=== PATIENT | female | born 1995 | race Caucasian/White ===

== ENCOUNTER 2018-09-29 23:19 | Emergency (ER) | payer SELFPAY ==
[~2018-09-29] VITALS: Ht 170.2 cm; Wt 148.8 kg
--- OUTSIDE RECORDS SUMMARY | 2018-09-29 23:28 | XMS REPORT ---
Author Author [facility] Medical Staff Organization [facility] Address [address] [place] [address] Phone [phone] Summary purpose CCDA Sent to NYE Chief Complaint and Reason for Visit No authorized Reason for Visit (Admitting Diagnosis) is available for this visit . Problem list No authorized problems tracked for continuity of care are available for this vis it. Encounters No authorized problems tracked for encounter diagnoses are available for this vi sit. Medications Home Medications Medication Directions Started Status Source Benadryl Allergy 25 mg tablet 1-2 tablet oral As needed has been taking the last 2 days for rash Current Allergies, adverse reactions, alerts Allergen Category Ingredient Status Reaction Severity Onset No known drug allergies No known drug allergies No known drug allergies Active Immunizations No immunizations recorded for this patient visit Relevant diagnostic tests and/or laboratory data RESULTS [facility] [id number]:00 Result Normal Range Units Urine Negative Negative History of procedures Procedure Code Code Type Description Date Performed Performing Physician J1030 CPT-4 DEPO MEDROL 40MG 05-01-2015 OLGA JESUS J1040 CPT-4 METHLPREDNISOLONE ACETATE 05-01-2015 OLGA JESUS 31310 CPT-4 THER/PROPH/DIAG INJ, SC/IM 05-01-2015 OLGA JESUS 78885 CPT-4 URINE TEST 05-01-2015 OLGA JESUS 75538 CPT-4 EMERGENCY DEPT VISIT 05-01-2015 OLGA JESUS Functional status Cognitive Status Finding Observation Time Level of Consciousne Alert Comment: Pt verbalizes no adverse effects r/t steroid injection or antihistamine given. [id number] Oriented to Person Yes [id number] Yes [id number]:50 Oriented to Time Yes [id number]:50 Vital signs Type Value Date Respirations 20 [id number]:45 Pulse 79 [id number]:45 O2 Saturation 95% [id number]:45 Systolic Blood Press 105mm/HG :45 Diastolic Blood Pres 59mm/HG :45 Temperature (Fahr) 98.6Degrees :45 Height 68in :45 Weight 318LB :45 Social history Type Value Smoking Status CURRENT EVERY DAY SMOKER Treatment Plan No treatment plan text is available for this visit. Hospital discharge instructions Diagnosis Good Diet Same as Before Activity Level Same as Before Meds Dispensed by Pr Hydroxizine 25mg take 1-2 tabs by mouth Every 6 hours as needed. Follow up with See Comments Comment: Follow up in clinic if no improvement in 48 hours ([phone]). Other Instructions Use a good moisturizer that is fragrance free like aquafor, eucerin or aveeno.
--- OUTSIDE RECORDS SUMMARY | 2018-09-29 23:29 | XMS REPORT | Referral Summary ---
Author Author [facility] Organization [facility] Address Unknown Phone Unavailable Care Team Providers Care Compliance Associate Name Role Phone Glenn Mccoy PCP Encounter VC Date(s): 05/31/15 - 05/31/15 [facility] [address], [facility] [address] [place], [place] [address] Discharge Diagnosis: Right hip pain Discharge Disposition: 01-Home or Self Care Attending Physician: Glenn Mccoy MD Admitting Physician: Glenn Mccoy MD Vital Signs Most recent to 1 oldest [Reference Range]: Blood Pressure 110/80 mmHg [90-140/60-90 mmHg] (05/31/15 4:09 PM) Problem List No data available for this section Allergies, Adverse Reactions, Alerts No Known Medication Allergies Medications No Known Medications Results No data available for this section Immunizations Vaccine Date Refusal Reason diphtheria/pertussis, acel/tetanus ped 05/27/94 diphtheria/pertussis, acel/tetanus ped 93 diphtheria/pertussis, acel/tetanus ped 93 diphtheria/pertussis, acel/tetanus ped 93 haemophilus b conjugate (HbOC) vaccine 05/27/94 haemophilus b conjugate (HbOC) vaccine 93 haemophilus b conjugate (HbOC) vaccine 93 haemophilus b conjugate (HbOC) vaccine 93 hepatitis B pediatric vaccine 93 hepatitis B pediatric vaccine 93 measles/mumps/rubella virus vaccine 05/27/94 poliovirus vaccine, inactivated 05/27/94 poliovirus vaccine, inactivated 93 poliovirus vaccine, inactivated 93 Procedures No data available for this section Social History Social History Type Response Smoking Status Type: Cigarettes; Current every day smoker Assessment and Plan Extracted from: Title: Office Visit Note Author: Glenn Mccoy MD Date: 05/31/15 Assessment/Plan Right hip pain xray and refer to ortho, she really needs to lose weight and quit smoking, routine f/u Ordered: Internal Referral to Orthopedic Office Visit Level 3 Est 32191 XR Hip w Pelvis when perform 2-3 vws RT Referrals to Other Providers right hip pain, referred to: Nelson Peoples MD Referred by: Glenn Mccoy MD
--- OUTSIDE RECORDS SUMMARY | 2018-09-29 23:29 | XMS REPORT | Referral Summary ---
Author Author [facility] Organization [facility] Address Unknown Phone Unavailable Care Team Providers Care Internist Name Role Phone Glenn Mccoy PCP Encounter VC Date(s): 07/03/17 - 07/05/17 [facility] [address] [place], [place] [address] Encounter Diagnosis Chest pain (Discharge Diagnosis) - 07/04/17 Discharge Disposition: 01-Home or Self Care Attending Physician: Ingrid Alvarado DO Admitting Physician: Ingrid Alvarado DO Vital Signs Most recent to 1 oldest [Reference Range]: Temperature Oral 36.7 degC [35.8-37.3 degC] (07/05/17 8:00 PM) Peripheral Pulse 91 bpm Rate [60-100 bpm] (07/03/17 5:13 AM) Heart Rate Monitored 86 bpm [60-100 bpm] (07/05/17 8:00 PM) Respiratory Rate 18 br/min [14-20 br/min] (07/05/17 8:00 PM) Blood Pressure 136/86 mmHg [90-140/60-90 mmHg] (07/05/17 8:00 PM) Mean Arterial 80 mmHg Pressure, Cuff (07/03/17 9:30 AM) SpO2 100 % (07/05/17 2:40 PM) Problem List Condition Effective Dates Status Health Status Informant Acne(Confirmed) Active Acute Active pain(Confirmed) Bilateral knee 2010 Active pain(Confirmed) At risk for Active falls(Confirmed)1 ADD/Hyperactivity(Co Active nfirmed) (Confirmed) 04/22/14 - 12/14/14 Resolved (Confirmed) 06/25/15 - 03/17/16 Resolved 1This problem was added by Discern Expert. Allergies, Adverse Reactions, Alerts No Known Medication Allergies Medications docusate sodium 100 mg oral capsule 100 mg 1 caps, Oral, BID, as needed for constipation, # 120 caps, 0 Refill(s) Start Date: 07/04/17 Status: Ordered ferrous sulfate 325 mg (65 mg elemental iron) oral tablet 325 mg 1 tabs, Oral, Daily, # 90 tabs, 1 Refill(s) Start Date: 07/04/17 Status: Ordered ibuprofen 800 mg oral tablet 800 mg 1 tabs, Oral, q8hr, as needed for pain, # 90 tabs, 0 Refill(s) Start Date: 07/04/17 Status: Ordered lanolin topical cream Topical, q1hr, Other (See Comment), 0 Refill(s) Start Date: 07/04/17 Status: Ordered oxyCODONE-acetaminophen 5 mg-325 mg oral tablet 1 tabs, Oral, q4hr, as needed for pain, # 30 tabs, 0 Refill(s) Start Date: 07/04/17 Status: Ordered Results Hematology Most recent to 1 oldest [Reference Range]: WBC [4.8-10.8 10.5 10*3/uL 10*3/uL] (07/04/17 9:32 PM) RBC [4.00-5.20] 3.94 *LOW* (07/04/17 9:32 PM) Hgb [12.0-16.0 10.7 gm/dL gm/dL] *LOW* (07/04/17 9:32 PM) Hct [37.0-47.0 %] 33.6 % *LOW* (07/04/17 9:32 PM) MCV [82.0-99.0 fL] 85.3 fL (07/04/17 9:32 PM) MCH [27.0-32.0 pg] 27.2 pg (07/04/17 9:32 PM) MCHC [32.0-36.0 31.8 gm/dL gm/dL] *LOW* (07/04/17 9:32 PM) RDW [11.5-14.5 %] 14.8 % *HI* (07/04/17 9:32 PM) Platelet [150-400 210 10*3/uL 10*3/uL] (07/04/17 9:32 PM) MPV [9.4-12.4 fL] 11.1 fL (07/04/17 9:32 PM) Immature 0.5 % Granulocytes (07/03/17 4:52 AM) [0.0-1.0 %] Neutrophils [51-75 71 % %] (07/03/17 4:52 AM) Lymphocytes [20-46 21 % %] (07/03/17 4:52 AM) Monocytes [4-11 %] 6 % (07/03/17 4:52 AM) Eosinophils [0-4 %] 1 % (07/03/17 4:52 AM) Basophils [0-2 %] 0 % (07/03/17 4:52 AM) Neutro Absolute 9.70 [1.90-7.00] *HI* (07/03/17 4:52 AM) Lymph Absolute 2.87 [0.80-3.30] (07/03/17 4:52 AM) Dauphin Absolute 0.87 [0.30-1.00] (07/03/17 4:52 AM) Eos Absolute 0.13 [0.00-0.50] (07/03/17 4:52 AM) Baso Absolute 0.02 [0.00-0.20] (07/03/17 4:52 AM) Chemistry Most recent to 1 oldest [Reference Range]: Sodium Lvl [136-144 138 mEq/L mEq/L] (07/04/17 9:32 PM) Potassium Lvl 4.0 mEq/L [3.6-5.1 mEq/L] (07/04/17 9:32 PM) Chloride [99-109 106 mEq/L mEq/L] (07/04/17 9:32 PM) CO2 [22-32 mEq/L] 26 mEq/L (07/04/17 9:32 PM) AGAP [3-20 mEq/L] 6 mEq/L (07/04/17 9:32 PM) BUN [4-20 mg/dL] 5 mg/dL (07/04/17 9:32 PM) Glucose Lvl [70-100 102 mg/dL mg/dL] *HI* (07/04/17 9:32 PM) Creatinine Lvl 0.61 mg/dL [0.44-1.03 mg/dL] (07/04/17 9:32 PM) eGFR [>60 mL/min] >60 mL/min 1 (07/04/17 9:32 PM) Calcium Lvl 8.3 mg/dL [8.6-10.0 mg/dL] *LOW* (07/04/17 9:32 PM) Albumin Lvl [3.5-4.8 2.3 gm/dL gm/dL] *LOW* (07/04/17 9:32 PM) Total Protein 5.6 gm/dL [6.1-7.9 gm/dL] *LOW* (07/04/17 9:32 PM) Globulin [1.9-4.3 3.3 gm/dL gm/dL] (07/04/17 9:32 PM) ALT [14-54 U/L] 10 U/L *LOW* (07/04/17 9:32 PM) AST [15-41 U/L] 22 U/L (07/04/17 9:32 PM) Alk Phos [26-104 82 U/L U/L] (07/04/17 9:32 PM) Bili Total [0.2-1.2 0.5 mg/dL 2 mg/dL] (07/04/17 9:32 PM) Troponin [<0.06 <0.05 ng/mL ng/mL] (07/04/17 9:32 PM) Blood Glucose, 87 mg/dL Capillary [70-100 (07/03/17 4:53 AM) mg/dL] 1Result Comment: Multiply eGFR results by 1.21 for race. 2Result Comment: Naproxen, specifically the metabolite O-desmethylnaproxen, may cause spurious elevation in Total Bilirubin levels. Blood Bank Results Most recent to 1 oldest [Reference Range]: ABO/Rh O POS (07/03/17 4:52 AM) Antibody Screen Tube NEG (07/03/17 4:52 AM) Immunizations Given and Recorded Vaccine Date Status Refusal Reason measles/mumps/rubella virus vaccine 07/04/17 Given measles/mumps/rubella virus vaccine 05/27/94 Given tetanus/diphth/pertuss (Tdap) adult/adol 10/12/07 Recorded poliovirus vaccine, inactivated 05/27/94 Given poliovirus vaccine, inactivated 93 Given poliovirus vaccine, inactivated 93 Given haemophilus b conjugate (HbOC) vaccine 05/27/94 Given haemophilus b conjugate (HbOC) vaccine 93 Given haemophilus b conjugate (HbOC) vaccine 93 Given haemophilus b conjugate (HbOC) vaccine 93 Given diphtheria/pertussis, acel/tetanus ped 05/27/94 Given diphtheria/pertussis, acel/tetanus ped 93 Given diphtheria/pertussis, acel/tetanus ped 93 Given diphtheria/pertussis, acel/tetanus ped 93 Given hepatitis B pediatric vaccine 93 Given hepatitis B pediatric vaccine 93 Given Procedures Procedure Date Related Diagnosis Body Site Status delivery only; 07/03/17 Completed Section1 07/03/17 Completed section 2015 Completed Cholecystectomy 02/2015 Completed section 2014 Completed Cholecystectomy 2014 Completed Tooth extraction 2010 Completed Adenoidectomy Completed Tonsillectomy Completed 1auto-populated from documented surgical case Social History Social History Type Response Smoking Status Type: Cigarettes; Current every day smoker entered on: 05/31/15 Assessment and Plan No data available for this section
--- OUTSIDE RECORDS SUMMARY | 2018-09-29 23:29 | XMS REPORT | Referral Summary ---
Author Author [facility] Organization [facility] Address Unknown Phone Unavailable Care Team Providers Care Firebrick And Refractory Tile Repairer Name Role Phone Glenn Mccoy PCP Encounter VC Date(s): 06/02/17 - 06/02/17 [facility] [address] [place], [place] [address] Discharge Diagnosis: Discharge Disposition: -Home or Self Care Attending Physician: Ingrid Alvarado DO Admitting Physician: Ingrid Alvarado DO Vital Signs Most recent to 1 oldest [Reference Range]: Peripheral Pulse 98 bpm Rate [60-100 bpm] (06/02/17 3:08 PM) Heart Rate Monitored 85 bpm [60-100 bpm] (06/02/17 5:45 PM) Respiratory Rate 18 br/min [14-20 br/min] (06/02/17 3:08 PM) Blood Pressure 122/66 mmHg [90-140/60-90 mmHg] (06/02/17 5:15 PM) SpO2 93 % (06/02/17 5:45 PM) Problem List Condition Effective Dates Status Health Status Informant Acne(Confirmed) Active Bilateral knee 2009 Active pain(Confirmed) ADD/Hyperactivity(Co Active nfirmed) (Confirmed) 04/22/14 - 12/14/14 Resolved (Confirmed) 06/25/15 - 03/17/16 Resolved Allergies, Adverse Reactions, Alerts No Known Medication Allergies Medications No Known Medications Results Urinalysis Most recent to 1 oldest [Reference Range]: UA Color Lori *ABN* (06/02/17 4:27 PM) UA Appear Cloudy *ABN* (06/02/17 4:27 PM) UA pH [5.0-8.0] 6.0 (06/02/17 4:27 PM) UA Leuk Est Trace [Negative] *ABN* (06/02/17 4:27 PM) UA Nitrite Negative [Negative] (06/02/17 4:27 PM) UA Protein Pos 1+ [Negative] *ABN* (06/02/17 4:27 PM) UA Glucose Negative [Negative] (06/02/17 4:27 PM) UA Ketones Trace [Negative] *ABN* (06/02/17 4:27 PM) UA Urobilinogen 2.0 mg/dL [<1.0 mg/dL] *ABN* (06/02/17 4:27 PM) UA Bili [Negative] Negative (06/02/17 4:27 PM) UA Blood [Negative] Negative (06/02/17 4:27 PM) UA Spec Grav 1.030 [1.003-1.030] (06/02/17 4:27 PM) Type Clean Catch (06/02/17 4:27 PM) UA WBC [0-4] 2-5 (06/02/17 4:27 PM) UA RBC [0-2] 2-5 (06/02/17 4:27 PM) Epithelial Cells 2-5 (06/02/17 4:27 PM) UA Bacteria Occasional *ABN* (06/02/17 4:27 PM) Crystals Ca Ox (06/02/17 4:27 PM) Crystals2 Amorphous (06/02/17 4:27 PM) UA Hyal Cast [0-3] 1-3 (06/02/17 4:27 PM) UA Mucous Present (06/02/17 4:27 PM) Microbiology Reports TEST: Affirm Vaginitis Panel STATUS: Auth (Verified) BODY SITE: SOURCE: Cervix/Vaginal COLLECTED DATE/TIME: 06/02/17 4:27 PM Affirm Vaginitis Panel Negative for Trichomonas vaginalis Negative for Gardnerella vaginalis Negative for Dasia species Immunizations Given and Recorded Vaccine Date Status Refusal Reason tetanus/diphth/pertuss (Tdap) adult/adol 10/12/07 Recorded poliovirus vaccine, inactivated 05/27/94 Given poliovirus vaccine, inactivated 93 Given poliovirus vaccine, inactivated 93 Given measles/mumps/rubella virus vaccine 05/27/94 Given haemophilus b conjugate (HbOC) vaccine 05/27/94 [...] Procedures Procedure Date Related Diagnosis Body Site section 2016 Cholecystectomy 02/2015 section 2015 Tooth extraction 2011 Adenoidectomy Tonsillectomy Social History Social History Type Response Smoking Status Type: Cigarettes; Current every day smoker entered on: 05/31/15 Assessment and Plan No data available for this section
--- OUTSIDE RECORDS SUMMARY | 2018-09-29 23:30 | XMS REPORT | Continuity of Care Document ---
Author Organization Unknown Address Unknown Allergies Active Description Code Type Severity Reaction Onset Reported/Identified Relationship to Patient Clinical Status Yes No known drug allergies [id number] ND N/A N/A 05/01/2015 Confirmed or Verified Yes bismuth subsalicylate bismuth subsalicylate Drug Allergy Severe THROAT CLOSES 11/24/2016 Yes No Known Allergies No Known Allergies Drug Allergy Unknown N/A 03/15/2017 Yes No Known Drug Allergy NKDA N/A N/A 08/04/2017 Medications Medication Packaging Start Date Stop Date Route Dosage Sig Sertraline 50 MG Oral Tablet [Zoloft] 04/06/2016 1 Q1D NITROFURANTOIN, MACROCRYSTALS 25 MG / Nitrofurantoin, Monohydrate 75 MG Oral Capsule [Macrobid] 01/27/2017 02/19/2017 1 BID Metronidazole 500 MG Oral Tablet [Flagyl] 01/27/2017 02/19/2017 1 BID Metronidazole 0.0075 MG/MG Vaginal Gel [MetroGel] 02/24/2017 1 Q1D NITROFURANTOIN, MACROCRYSTALS 25 MG / Nitrofurantoin, Monohydrate 75 MG Oral Capsule [Macrobid] 02/24/2017 1 BID Fluconazole 150 MG Oral Tablet [Diflucan] 06/17/2017 1 Q1D Ondansetron 8 MG Oral Tablet [Zofran] 06/26/2017 07/06/2017 1 Q8H Sertraline 100 MG Oral Tablet [Zoloft] 07/06/2017 1 Q1D Problems Date Dx Coded Attending Type Code Diagnosis Diagnosed By 05/01/2015 OLGA JESUS MD R21 Rash and other nonspecific skin eruption 05/01/2015 OLGA JESUS MD R21. 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39 39 WEEKS GESTATION OF 04/04/2016 F O99.345 Other mental disorders complicating the puerperium 01/22/2017 ALVA MCCALL O36.80X0 with inconclusive viability, not applicable or unspecified 01/22/2017 ALVA MCCALL R30.0 Dysuria 01/22/2017 ALVA MCCALL Z01.419 Encounter for gynecological examination (general) (routine) without abnormal findings 01/22/2017 ALVA MCCALL Z11.2 Encounter for screening for other bacterial diseases 01/22/2017 ALVA MCCALL Z34.82 Encounter for supervision of other normal , second trimester 01/24/2017 ALVA MCCALL O34.219 Maternal care for unspecified type scar from previous delivery 02/19/2017 ALVA MCCALL Z34.92 Encounter for supervision of normal , unspecified, second trimester 03/06/2017 Alva Dennis DO Z34.92 ENCNTR FOR SUPRVSN OF NORMAL PREG, UNSP, 03/06/2017 Alva Dennis DO Z34.92 ENCNTR FOR SUPRVSN OF NORMAL PREG, UNSP, 04/06/2017 ALVA MCCALL O82 Encounter for delivery without indication 04/06/2017 ALVA MCCALL Z34.92 Encounter for supervision of normal , unspecified, second trimester 05/25/2017 ALVA MCCALL Z34.92 Encounter for supervision of normal , unspecified, second trimester 06/17/2017 ALVA MCCALL B37.3 Candidiasis of vulva and vagina 06/17/2017 ALVA MCCALL Z34.92 Encounter for supervision of normal , unspecified, second trimester 06/26/2017 ALVA MCCALL R11.0 Nausea 06/26/2017 ALVA MCCALL Z34.92 Encounter for supervision of normal , unspecified, second trimester 07/06/2017 ALVA MCCALL F41.9 Anxiety disorder, unspecified 07/06/2017 ALVA MCCALL O99.345 Other mental disorders complicating the puerperium 07/06/2017 ALVA MCCALL Z09 Encounter for follow-up examination after completed treatment for conditions other than malignant neoplasm 08/03/2017 ALVA MCCALL Z39.2 Encounter for routine follow-up 08/03/2017 ALVA MCCALL Z01.419 Encounter for gynecological examination (general) (routine) without abnormal findings Procedures Code [place] [address] URINE TEST OLGA JESUS MD 05/01/2015 32238 THER/PROPH/DIAG INJ SC/IM OLGA JESUS MD 05/01/2015 47886 EMERGENCY DEPT VISIT OLGA JESUS MD 05/01/2015 J1030 METHYLPREDNISOLONE 40 MG INJ OLGA JESUS MD 05/01/2015 J1040 METHYLPREDNISOLONE 80 MG INJ OLGA JESUS MD 05/01/2015 [id number] EXTRACTION OF POC, LOW CERVICAL, OPEN APPROACH Alva Dennis DO 03/17/2016 Results Test Result Range Urine - 05/02/15 06:59 Urine NEG Negative CHEM/HEM PROFILE-BEDSIDE - 10/23/15 18:29 POTASSIUM 3.9 mmol/L 3.5-5.3 METHOD Bedside ANION GAP 16 mmol/L 10-20 METHOD Bedside GLUCOSE 85 mg/dL 70-99 BLOOD UREA NITROGEN < 3 mg/dL 7-20 CREATININE 0.4 mg/dL 0.6-1.0 HEMOGLOBIN 12.2 gm/dL 12.0-16.0 HEMATOCRIT 36.0 % 37.0-47.0 SODIUM 137 mmol/L 135-148 CHLORIDE 107 mmol/L 98-110 CARBON DIOXIDE 18 mmol/L 21-32 CALCIUM IONIZED 4.8 mg/dL 4.5-5.3 CBC W/DIFF - 10/23/15 18:57 EOSINOPHIL # 0.1 k/cumm 0.1-0.5 EOSINOPHIL % 1 % 2-4 GRANULOCYTE # 6.4 k/cumm 2.0-9.0 GRANULOCYTE % 68 % 50-75 LYMPHOCYTE # 2.2 k/cumm 1.0-4.0 LYMPHOCYTE % 23 % 20-30 MEAN CELL HGB 27.5 pg 27.0-33.0 MEAN CELL HGB CONCENTRATION 33.1 g/dL 32.0-37.0 MEAN CELL VOLUME 83.0 fl 80.0-100.0 MONOCYTE # 0.7 k/cumm 0.1-1.0 MONOCYTE % 7 % 4-6 RED BLOOD CELL 4.48 m/cumm 4.00-6.00 RED CELL DISTRIBUTION WIDTH 14.9 % 11.0-15.6 WHITE BLOOD CELL 9.4 k/cumm 5.0-10.0 HEMOGLOBIN 12.3 gm/dL 12.0-16.0 HEMATOCRIT 37.2 % 37.0-47.0 PLATELET COUNT 231 k/cumm 150-400 URINALYSIS, ROUTINE - 12/22/15 18:48 UA LEUKOCYTE ESTERASE DIPSTICK TRACE NEGATIVE UA NITRITE DIPSTICK NEGATIVE NEGATIVE UA PROTEIN DIPSTICK TRACE NEGATIVE UA GLUCOSE DIPSTICK NEGATIVE NEGATIVE UA KETONE DIPSTICK NEGATIVE NEGATIVE UA UROBILINOGEN DIPSTICK 3+ NORMAL UA BILIRUBIN DIPSTICK POSITIVE NEGATIVE UA BLOOD DIPSTICK NEGATIVE NEGATIVE UA SPECIFIC GRAVITY 1.025 1.015-1.025 UR PH 7.0 5.0-7.0 UA MICROSCOPIC - 12/22/15 18:48 UA AMORPHOUS SEDIMENT 2+ UA BACTERIA 4+ NEGATIVE UA EPITHELIAL CELLS 4+ epi/hpf 0 - 1+ UA MUCUS 4+ NEG TO 1+ UA RBC 0-3 rbc/hpf 0 - 3 UA VOLUME FOR EXAM 12.0 mL (12mL STD) UA WBC 10-20 wbc/hpf 0 - 5 WET MOUNT - 12/22/15 19:45 Microbiology CBC - 12/22/15 21:14 MEAN CELL HGB 27.6 pg 27.0-33.0 MEAN CELL HGB CONCENTRATION 32.7 g/dL 32.0-37.0 MEAN CELL VOLUME 84.3 fl 80.0-100.0 RED BLOOD CELL 4.28 m/cumm 4.00-6.00 RED CELL DISTRIBUTION WIDTH 14.4 % 11.0-15.6 WHITE BLOOD CELL 6.5 k/cumm 5.0-10.0 HEMOGLOBIN 11.8 gm/dL 12.0-16.0 HEMATOCRIT 36.1 % 37.0-47.0 PLATELET COUNT 189 k/cumm 150-400 METABOLIC PANEL, COMPREHN - 12/22/15 21:14 POTASSIUM 3.3 mmol/L 3.5-5.3 EST GFR (MDRD) > 60 mL/min > 59 ANION GAP 10 mmol/L 5-15 EST CrCl (CG) > 60 mL/min > 59 GLUCOSE 80 mg/dL 70-99 CALCIUM 8.5 mg/dL 8.5-10.1 BLOOD UREA NITROGEN 5 mg/dL 7-20 CREATININE 0.4 mg/dL 0.6-1.0 SODIUM 139 mmol/L 135-148 CHLORIDE 106 mmol/L 98-110 AST/SGOT 20 Units/L 10-37 ALT/SGPT 16 Units/L < 66 CARBON DIOXIDE 23 mmol/L 21-32 TOTAL PROTEIN 6.2 gm/dL 6.4-8.2 ALBUMIN 2.3 gm/dL 3.4-5.0 BILI TOTAL 0.2 mg/dL 0.0-1.0 ALKALINE PHOSPHATASE TOTAL 79 IU/L 45-117 CBC - 02/13/16 01:10 MEAN CELL HGB 26.3 pg 27.0-33.0 MEAN CELL HGB CONCENTRATION 32.3 g/dL 32.0-37.0 MEAN CELL VOLUME 81.5 fl 80.0-100.0 RED BLOOD CELL 4.26 m/cumm 4.00-6.00 RED CELL DISTRIBUTION WIDTH 14.7 % 11.0-15.6 WHITE BLOOD CELL 14.8 k/cumm 5.0-10.0 HEMOGLOBIN 11.2 gm/dL 12.0-16.0 HEMATOCRIT 34.7 % 37.0-47.0 PLATELET COUNT 216 k/cumm 150-400 METABOLIC PANEL, COMPREHN - 02/13/16 01:10 POTASSIUM 3.6 mmol/L 3.5-5.3 EST GFR (MDRD) > 60 mL/min > 59 ANION GAP 11 mmol/L 5-15 EST CrCl (CG) > 60 mL/min > 59 GLUCOSE 89 mg/dL 70-99 CALCIUM 8.8 mg/dL 8.5-10.1 BLOOD UREA NITROGEN 5 mg/dL 7-20 CREATININE 0.6 mg/dL 0.6-1.0 SODIUM 139 mmol/L 135-148 CHLORIDE 104 mmol/L 98-110 AST/SGOT 13 Units/L 10-37 ALT/SGPT 11 Units/L < 66 CARBON DIOXIDE 24 mmol/L 21-32 TOTAL PROTEIN 6.6 gm/dL 6.4-8.2 ALBUMIN 2.4 gm/dL 3.4-5.0 BILI TOTAL 0.2 mg/dL 0.0-1.0 ALKALINE PHOSPHATASE TOTAL 98 IU/L 45-117 URIC ACID - 02/13/16 01:10 URIC ACID 4.4 mg/dL 2.6-6.0 LACTATE DEHYDROGENASE (LDH/LD) - 02/13/16 01:10 LACTATE DEHYDROGENASE (LDH/LD) 142 Units/L 81-234 UR PROTEIN/CREATININE RATION - 02/13/16 01:20 UR CREATININE COMMENT RANDOM UR PROTEIN COMMENT RANDOM UR TOTAL PROTEIN LEVEL 9.8 mg/dL 0.0-11.9 UR CREATININE LEVEL 272.0 mg/dL 44-467 UR PROTEIN/CREATININE RATIO 36 mg/gm < 200 URINALYSIS, ROUTINE - 02/13/16 01:20 UA LEUKOCYTE ESTERASE DIPSTICK NEGATIVE NEGATIVE UA NITRITE DIPSTICK NEGATIVE NEGATIVE UA PROTEIN DIPSTICK NEGATIVE NEGATIVE UA GLUCOSE DIPSTICK NEGATIVE NEGATIVE UA KETONE DIPSTICK TRACE NEGATIVE UA UROBILINOGEN DIPSTICK NORMAL NORMAL UA BILIRUBIN DIPSTICK NEGATIVE NEGATIVE UA BLOOD DIPSTICK NEGATIVE NEGATIVE UA SPECIFIC GRAVITY 1.027 1.015-1.025 UR PH 6.5 5.0-7.0 CBC - 03/17/16 06:22 MEAN CELL HGB 24.6 pg 27.0-33.0 MEAN CELL HGB CONCENTRATION 31.5 g/dL 32.0-37.0 MEAN CELL VOLUME 78.2 fl 80.0-100.0 RED BLOOD CELL 4.87 m/cumm 4.00-6.00 RED CELL DISTRIBUTION WIDTH 15.4 % 11.0-15.6 WHITE BLOOD CELL 16.3 k/cumm 5.0-10.0 HEMOGLOBIN 12.0 gm/dL 12.0-16.0 HEMATOCRIT 38.1 % 37.0-47.0 PLATELET COUNT 274 k/cumm 150-400 HEMOGLOBIN - 03/17/16 12:21 MEAN CELL VOLUME 78.7 fl 80.0-100.0 HEMOGLOBIN 10.9 gm/dL 12.0-16.0 CBC - 03/19/16 19:01 MEAN CELL HGB 24.8 pg 27.0-33.0 MEAN CELL HGB CONCENTRATION 31.5 g/dL 32.0-37.0 MEAN CELL VOLUME 78.8 fl 80.0-100.0 RED BLOOD CELL 3.91 m/cumm 4.00-6.00 RED CELL DISTRIBUTION WIDTH 15.6 % 11.0-15.6 WHITE BLOOD CELL 11.0 k/cumm 5.0-10.0 HEMOGLOBIN 9.7 gm/dL 12.0-16.0 HEMATOCRIT 30.8 % 37.0-47.0 PLATELET COUNT 245 k/cumm 150-400 URINALYSIS, ROUTINE - 03/20/16 01:00 UA LEUKOCYTE ESTERASE DIPSTICK NEGATIVE NEGATIVE UA NITRITE DIPSTICK NEGATIVE NEGATIVE UA PROTEIN DIPSTICK TRACE NEGATIVE UA GLUCOSE DIPSTICK NEGATIVE NEGATIVE UA KETONE DIPSTICK TRACE NEGATIVE UA UROBILINOGEN DIPSTICK NORMAL NORMAL UA BILIRUBIN DIPSTICK NEGATIVE NEGATIVE UA BLOOD DIPSTICK 4+ NEGATIVE UA SPECIFIC GRAVITY 1.026 1.015-1.025 UR PH 5.0 5.0-7.0 UA MICROSCOPIC - 03/20/16 01:00 UA BACTERIA 3+ NEGATIVE UA CALCIUM OXALATE CRYSTALS PRESENT NEGATIVE UA EPITHELIAL CELLS 4+ epi/hpf 0 - 1+ UA MUCUS 3+ NEG TO 1+ UA RBC >100 rbc/hpf 0 - 3 UA VOLUME FOR EXAM 12.0 mL (12mL STD) UA WBC 0-1 wbc/hpf 0 - 5 URINALYSIS, ROUTINE - 11/24/16 14:57 UA LEUKOCYTE ESTERASE DIPSTICK 1+ NEGATIVE UA NITRITE DIPSTICK POSITIVE NEGATIVE UA PROTEIN DIPSTICK 1+ NEGATIVE UA GLUCOSE DIPSTICK NEGATIVE NEGATIVE UA KETONE DIPSTICK TRACE NEGATIVE UA UROBILINOGEN DIPSTICK NORMAL NORMAL UA BILIRUBIN DIPSTICK NEGATIVE NEGATIVE UA BLOOD DIPSTICK NEGATIVE NEGATIVE UA SPECIFIC GRAVITY >=1.030 1.015-1.025 UR PH 6.0 5.0-7.0 UA MICROSCOPIC - 11/24/16 14:57 UA BACTERIA 3+ NEGATIVE UA EPITHELIAL CELLS 2+ epi/hpf 0 - 1+ UA MUCUS 3+ NEG TO 1+ UA RBC 0-3 rbc/hpf 0 - 3 UA VOLUME FOR EXAM 12.0 mL (12mL STD) UA WBC 10-20 wbc/hpf 0 - 5 URINE CULTURE - 11/24/16 14:57 Microbiology UR TEST - 11/24/16 14:58 UR TEST POSITIVE NEGATIVE HCG QUANT INTACT - 11/24/16 15:11 HCG QUANT INTACT 32584 mIU/mL URINALYSIS, ROUTINE - 12/02/16 22:59 UA LEUKOCYTE ESTERASE DIPSTICK 1+ NEGATIVE UA NITRITE DIPSTICK NEGATIVE NEGATIVE UA PROTEIN DIPSTICK 2+ NEGATIVE UA GLUCOSE DIPSTICK NEGATIVE NEGATIVE UA KETONE DIPSTICK NEGATIVE NEGATIVE UA UROBILINOGEN DIPSTICK NORMAL NORMAL UA BILIRUBIN DIPSTICK 1+ NEGATIVE UA BLOOD DIPSTICK 2+ NEGATIVE UA SPECIFIC GRAVITY >=1.030 1.015-1.025 UR PH 5.0 5.0-7.0 UA MICROSCOPIC - 12/02/16 22:59 UA BACTERIA 1+ NEGATIVE UA EPITHELIAL CELLS 2+ epi/hpf 0 - 1+ UA MUCUS 1+ NEG TO 1+ UA RBC 20-50 rbc/hpf 0 - 3 UA VOLUME FOR EXAM 3.0 mL (12mL STD) UA WBC 50-100 wbc/hpf 0 - 5 URINE CULTURE - 12/02/16 22:59 Microbiology HCG QUANT INTACT - 12/11/16 15:02 HCG QUANT INTACT 40554 mIU/mL URINALYSIS, ROUTINE - 12/11/16 15:25 UA LEUKOCYTE ESTERASE DIPSTICK 3+ NEGATIVE UA NITRITE DIPSTICK POSITIVE NEGATIVE UA PROTEIN DIPSTICK NEGATIVE NEGATIVE UA GLUCOSE DIPSTICK NEGATIVE NEGATIVE UA KETONE DIPSTICK NEGATIVE NEGATIVE UA UROBILINOGEN DIPSTICK NORMAL NORMAL UA BILIRUBIN DIPSTICK NEGATIVE NEGATIVE UA BLOOD DIPSTICK NEGATIVE NEGATIVE UA SPECIFIC GRAVITY 1.020 1.015-1.025 UR PH 7.0 5.0-7.0 UA MICROSCOPIC - 12/11/16 15:25 UA BACTERIA 4+ NEGATIVE UA EPITHELIAL CELLS 3+ epi/hpf 0 - 1+ UA RBC 3-5 rbc/hpf 0 - 3 UA VOLUME FOR EXAM 12.0 mL (12mL STD) UA WBC 20-50 wbc/hpf 0 - 5 URINE CULTURE - 12/11/16 15:25 Microbiology BETA HYDROXYBUTYRATE - 02/09/17 00:38 BETA HYDROXYBUTYRATE 0.1 mmol/L < 0.6 METABOLIC PANEL, COMPREHN - 02/09/17 00:38 POTASSIUM 3.8 mmol/L 3.5-5.3 EST GFR (MDRD) > 60 mL/min > 59 ANION GAP 9 mmol/L 5-15 EST CrCl (CG) > 60 mL/min > 59 GLUCOSE 70 mg/dL 70-99 CALCIUM 9.0 mg/dL 8.5-10.1 BLOOD UREA NITROGEN 6 mg/dL 7-20 CREATININE 0.6 mg/dL 0.6-1.0 SODIUM 137 mmol/L 135-148 CHLORIDE 103 mmol/L 98-110 AST/SGOT 11 Units/L 10-37 ALT/SGPT 12 Units/L < 66 CARBON DIOXIDE 25 mmol/L 21-32 TOTAL PROTEIN 7.1 gm/dL 6.4-8.2 ALBUMIN 2.8 gm/dL 3.4-5.0 BILI TOTAL 0.2 mg/dL 0.0-1.0 ALKALINE PHOSPHATASE TOTAL 64 IU/L 45-117 LIPASE - 02/09/17 00:38 LIPASE 120 Units/L 73-393 URINE CULTURE - 02/09/17 01:55 Microbiology UR TEST - 02/09/17 01:55 UR TEST POSITIVE NEGATIVE URINALYSIS, ROUTINE - 02/09/17 01:57 UA LEUKOCYTE ESTERASE DIPSTICK 1+ NEGATIVE UA NITRITE DIPSTICK NEGATIVE NEGATIVE UA PROTEIN DIPSTICK 1+ NEGATIVE UA GLUCOSE DIPSTICK NEGATIVE NEGATIVE UA KETONE DIPSTICK TRACE NEGATIVE UA UROBILINOGEN DIPSTICK NORMAL NORMAL UA BILIRUBIN DIPSTICK NEGATIVE NEGATIVE UA BLOOD DIPSTICK NEGATIVE NEGATIVE UA SPECIFIC GRAVITY 1.015 1.015-1.025 UR PH 7.5 5.0-7.0 UA MICROSCOPIC - 02/09/17 01:57 UA AMORPHOUS SEDIMENT 4+ UA BACTERIA 1+ NEGATIVE UA EPITHELIAL CELLS 2+ epi/hpf 0 - 1+ UA RBC 0 rbc/hpf 0 - 3 UA VOLUME FOR EXAM 12.0 mL (12mL STD) UA WBC 10-20 wbc/hpf 0 - 5 URINALYSIS, ROUTINE - 03/15/17 23:15 UA LEUKOCYTE ESTERASE DIPSTICK 1+ NEGATIVE UA NITRITE DIPSTICK POSITIVE NEGATIVE UA PROTEIN DIPSTICK TRACE NEGATIVE UA GLUCOSE DIPSTICK NEGATIVE NEGATIVE UA KETONE DIPSTICK TRACE NEGATIVE UA UROBILINOGEN DIPSTICK NORMAL NORMAL UA BILIRUBIN DIPSTICK POSITIVE NEGATIVE UA BLOOD DIPSTICK 1+ NEGATIVE UA SPECIFIC GRAVITY 1.031 1.015-1.025 UR PH 6.5 5.0-7.0 UA MICROSCOPIC - 03/15/17 23:15 UA AMORPHOUS SEDIMENT 2+ UA BACTERIA 2+ NEGATIVE UA CALCIUM OXALATE CRYSTALS PRESENT NEGATIVE UA EPITHELIAL CELLS 2+ epi/hpf 0 - 1+ UA RBC 0 rbc/hpf 0 - 3 UA VOLUME FOR EXAM 12.0 mL (12mL STD) UA WBC 50-100 wbc/hpf 0 - 5 URINE CULTURE - 03/15/17 23:15 Microbiology WET MOUNT - 03/16/17 00:24 Microbiology CHLAMYDIA DNA BY PCR - 03/16/17 00:24 Microbiology URINE CULTURE - 06/19/17 08:00 Microbiology URINALYSIS, ROUTINE - 06/19/17 08:00 UA LEUKOCYTE ESTERASE DIPSTICK TRACE NEGATIVE UA NITRITE DIPSTICK POSITIVE NEGATIVE UA PROTEIN DIPSTICK 1+ NEGATIVE UA GLUCOSE DIPSTICK NEGATIVE NEGATIVE UA KETONE DIPSTICK NEGATIVE NEGATIVE UA UROBILINOGEN DIPSTICK NORMAL NORMAL UA BILIRUBIN DIPSTICK NEGATIVE NEGATIVE UA BLOOD DIPSTICK 2+ NEGATIVE UA SPECIFIC GRAVITY 1.020 1.015-1.025 UR PH 6.5 5.0-7.0 UA MICROSCOPIC - 06/19/17 08:00 UA BACTERIA 4+ NEGATIVE UA EPITHELIAL CELLS 2+ epi/hpf 0 - 1+ UA MUCUS 1+ NEG TO 1+ UA RBC 3-5 rbc/hpf 0 - 3 UA VOLUME FOR EXAM 12.0 mL (12mL STD) UA WBC 10-20 wbc/hpf 0 - 5 URINALYSIS, ROUTINE - 01/31/18 21:55 UA LEUKOCYTE ESTERASE DIPSTICK NEGATIVE NEGATIVE UA NITRITE DIPSTICK NEGATIVE NEGATIVE UA PROTEIN DIPSTICK NEGATIVE NEGATIVE UA GLUCOSE DIPSTICK NEGATIVE NEGATIVE UA KETONE DIPSTICK NEGATIVE NEGATIVE UA UROBILINOGEN DIPSTICK NORMAL NORMAL UA BILIRUBIN DIPSTICK NEGATIVE NEGATIVE UA BLOOD DIPSTICK NEGATIVE NEGATIVE UA SPECIFIC GRAVITY 1.015 1.015-1.025 UR PH 6.5 5.0-7.0 UR TEST - 01/31/18 21:55 UR TEST NEGATIVE NEGATIVE CBC W/DIFF - 01/31/18 22:14 BASOPHIL # 0.0 k/cumm 0.0-0.2 BASOPHIL % 0.4 % 0-1 EOSINOPHIL # 0.1 k/cumm 0.1-0.5 EOSINOPHIL % 1.3 % 2-4 GRANULOCYTE # 7.1 k/cumm 2.0-9.0 GRANULOCYTE % 66.5 % 50-75 LYMPHOCYTE # 2.8 k/cumm 1.0-4.0 LYMPHOCYTE % 26.0 % 20-30 MEAN CELL HGB 27.5 pg 27.0-33.0 MEAN CELL HGB CONCENTRATION 31.9 g/dL 32.0-37.0 MEAN CELL VOLUME 86.1 fl 80.0-100.0 MONOCYTE # 0.6 k/cumm 0.1-1.0 MONOCYTE % 5.4 % 4-6 MEAN PLATELET VOLUME 10.3 fl 8.5-10.9 RED BLOOD CELL 5.17 m/cumm 4.00-6.00 RED CELL DISTRIBUTION WIDTH 14.5 % 11.0-15.6 WHITE BLOOD CELL 10.7 k/cumm 5.0-10.0 HEMOGLOBIN 14.2 gm/dL 12.0-16.0 HEMATOCRIT 44.5 % 37.0-47.0 NRBC % 0.0 /100 WBC 0.0-0.0 PLATELET COUNT 274 k/cumm 150-400 IMMATURE GRANULOCYTE % 0.4 % 0.0-0.6 IMMATURE GRANULOCYTE # 0.04 k/cumm 0.00-0.09 METABOLIC PANEL, COMPREHN - 01/31/18 22:14 POTASSIUM 4.4 mmol/L 3.5-5.3 EST GFR (MDRD) > 60 mL/min > 59 ANION GAP 8 mmol/L 5-15 EST CrCl (CG) > 60 mL/min > 59 GLUCOSE 125 mg/dL 70-99 CALCIUM 9.3 mg/dL 8.5-10.1 BLOOD UREA NITROGEN 10 mg/dL 7-20 CREATININE 0.7 mg/dL 0.6-1.0 SODIUM 137 mmol/L 135-148 CHLORIDE 104 mmol/L 98-110 AST/SGOT 18 Units/L 10-37 ALT/SGPT 28 Units/L < 66 CARBON DIOXIDE 25 mmol/L 21-32 TOTAL PROTEIN 7.2 gm/dL 6.4-8.2 ALBUMIN 3.4 gm/dL 3.4-5.0 BILI TOTAL 0.2 mg/dL 0.0-1.0 ALKALINE PHOSPHATASE TOTAL 93 IU/L 45-117 LIPASE - 01/31/18 22:14 LIPASE 162 Units/L 73-393 Radiology Report from KELLY on 08/02/2015 12:25:00 DIAGNOSTIC IMAGING REPORT [facility] - [address] [place] [address] PHONE #: [phone] FAX #: [phone] Name: NELLY FLORES Loc: EMorSUZETTE Radiology No: : 1995 Age: 20 Sex: F Status: REG CLI Unit No: [id number] Phys: Alva Matt Acct: [id number] Reason For Exam: CRAMPING Exam Date: 08/02/2015 Report Has Been Amended EXAMS: CPT CODE: [id number] PREG 1ST TRIMESTER 50388 Addendum - 08/02/2015 SIGNED 08/02/2015 ADDENDUM: [id number] Addendum: The heart rate was remeasured. The heart rate was measured at 132 beats for minute. This is within normal range. IMPRESSION: 1. Single, live intrauterine at 6 weeks 5 days. Estimated due date is 03/22/2016. These are disconcordant with the clinical dates. Recommend followup to assess interval growth. 2. heart rate was remeasured at 132 beats for minute, within normal range. 3. No avery- gestational hemorrhage. at 1220 Reported and signed by: PONCHO AGUERO MD Transcribed: 08/02/2015 (1220) PJOSHAK Report REASON FOR EXAM: CRAMPING . Patient is . Patient is unsure of the clinical dates. Vaginal bleeding 2 weeks ago. TIME OF CURRENT STUDY: 08/02/2015 8:55 AM COMPARISON: None TECHNIQUE: Transabdominal first trimester sonogram was performed. Examination is suboptimal due to the patient's body habitus. FINDINGS: There is a single, live intrauterine with a crown-rump length measuring 8 mm, which is consistent with a 6 weeks 5 days fetus. ALEXANDRO based on this exam is 03/22/2016 PAGE 1 Signed Report (CONTINUED) DIAGNOSTIC IMAGING REPORT [facility] - [address] [place] [address] PHONE #: [phone] FAX #: [phone] Name: NELLY FLORES Loc: ABRAM Radiology No: : 1995 Age: 20 Sex: F Status: REG CL Unit No: [id number] Phys: Alva Matt Acct: [id number] Reason For Exam: des for Exam: CRAMPING Exam Date: 08/02/2015--------- Report Has Been Amended EXAMS: CPT CODE: [id number] PREG 1ST TRIMESTER 14394 <Continued> heart rate was documented at 66 beats per minute. This is lower than expected and can be seen with very early . anatomy is not well seen at this early state of gestation. Yolk sac is identified (image 28). No avery-gestational hemorrhage is present. No adnexal masses are identified. There is no free fluid in the cul de sac. CLINICAL DATES: Gestational age 8 weeks 3 days ALEXANDRO is 03/10/2016 IMPRESSION: 1. Single, live intrauterine at 6 weeks 5 days. Estimated due date is 03/22/2016. These are disconcordant with the clinical dates. Recommend followup to assess interval growth. 2. heart rate documented at 66 beats for minute, lower than expected. This can be seen with early . However would recommend followup to assess. 3. No avery-gestational hemorrhage. at 0905 Reported and signed by: PONCHO AGUERO MD CC: Alva Mccall DO Technologist: JASWINDER STEWART Transcribed Date/Time: 08/02/2015 (0905)Ups Driver: BEE Printed Date/Time: 08/02/2015 (5735) BATCH NO: N/A PAGE 2 Signed Report Radiology Report from BENJY on 10/23/2015 19:39:00 DIAGNOSTIC IMAGING REPORT [facility] - [address] [place] [address] PHONE #: [phone] FAX #: [phone] Name: NELLY FLORES Loc: [facility] Radiology No: : 1995 Age: 20 Sex: F Status: REG ER Unit No: [id number] Phys: Thong Kwan MD Acct: [id number] Reason For Exam: s/p fall Exam Date: 10/23/2015 EXAMS: CPT CODE: [id number] CT HEAD W/O CONTRAST 47006 TIME OF EXAM: 10/23/2015 7:24 PM REASON FOR EXAM: s/p fall COMPARISON: None. TECHNIQUE: Routine non- contrast enhanced helical images were obtained from the skull base to the vertex. FINDINGS: The ventricles and cortical sulci are age- appropriate. There is no midline shift or mass-effect. No acute intra-axial hemorrhage is seen. The day-white matter differentiation is within normal limits. There is no CT evidence of acute territorial ischemia. There are no abnormal areas of increased or decreased density to suggest acute hemorrhage or edema. No extra-axial masses or collections are present. Minimal mucosal thickening is noted in the right maxillary sinus. Otherwise, the paranasal sinuses and mastoid air cells are well pneumatized. The globes, orbits, calvarium, and soft tissues are unremarkable. IMPRESSION: 1. No evidence of acute territorial ischemia. No hemorrhage or focal intra-axial mass. Findings discussed by Dr. Elizalde with Dr. Ruiz on 10/23/2015 7:30 PM. I have personally reviewed these images and approved or corrected the resident physician's int erpretation. at 1934 RESIDENT: JUANCHO ELIZALDE MD Reported and signed by: KEMI FREIRE, MD PAGE 1 Signed Report (CONTINUED) DIAGNOSTIC IMAGING REPORT [facility] - [address], [place] [address] PHONE #: [phone] FAX #: [phone] Name: NELLY FLORES CARMEN Loc: [facility] Radiology No: : 1995 Age: 20 Sex: F Status: REG ER Unit No: [id number] Phys: Thong Kwan MD Acct: [id number] Reason For Exam: s/p fall Exam Date: 10/23/2015 EXAMS: CPT CODE: [id number] CT HEAD W/O CONTRAST 57166 <Continued> CC: Technologist: AFSHIN RICKETTS Transcribed Date/Time: 10/23/2015 (1933)Ups Driver: CHIP Printed Date/Time: 10/23/2015 (1938) BATCH NO: N/A PAGE 2 Signed Report Radiology Report from B[facility] on 10/23/2015 19:39:00 DIAGNOSTIC IMAGING REPORT [facility] - [address], [place] [address] PHONE #: [phone] FAX #: [phone] Name: NELLY FLORES Loc: [facility] Radiology No: : 1995 Age: 20 Sex: F Status: REG ER Unit No: [id number] Phys: Thong Kwan MD Acct: [id number] Reason For Exam: s/p fall Exam Date: 10/23/2015 EXAMS: CPT CODE: [id number] CT CERVICAL SPINE W/O 57413 TIME OF EXAM: 10/23/2015 7:24 PM REASON FOR EXAM: s/p fall COMPARISON: None. TECHNIQUE: Noncontrast-enhanced helical images of the cervical spine were obtained from the skull base to the lung apices. Sagittal and coronal reformats were also reviewed. FINDINGS: Skiver Box Toe views and reformats demonstrate straightening of the normal curvature, which may be positional in nature or related to muscle spasm. There is no evidence of acute fracture or dislocation. The vertebral bodies and disk spaces are maintained. Prevertebral soft tissues are unremarkable. No bony fragments are seen in the spinal canal. No areas of spinal canal or foraminal stenosis are seen. The contents of the spinal canal are not well evaluated on CT, but no large epidural hematoma is identified. IMPRESSION: 1. No evidence of acute fracture or dislocation of the cervical spine. Findings discussed by Dr. Elizalde with Dr. Ruiz on 10/23/2015 7:30 PM. I have personally reviewed these images and have approved or corrected the resident physician's interpretation. at 1934 RESIDENT: JUANCHO ELIZALDE MD Reported and signed by: KEMI FREIRE MD CC: Technologist: AFSHIN RICKETTS Transcribed Date/Time: 10/23/2015 (1933)Ups Driver: CHIP Printed Date/Time: 10/23/2015 (1939) BATCH NO: N/A PAGE 1 Signed Report Radiology Report from PRINCESS on 10/24/2015 11:51:00 DIAGNOSTIC IMAGING REPORT [facility] - [address] [address] PHONE #: [phone] FAX #: [phone] Name: MARKNELLY ANN Loc: JUDY Radiology No: : 1995 Age: 20 Sex: F Status: [facility] Unit No: [id number] Phys: Alva Matt Acct: [id number] Reason For Exam: SUPERVISION OF 2ND TRIM ; 18 WK Exam Date: 10/24/2015 EXAMS: CPT CODE: [id number] PREG >1ST TRIMESTER 53760 REASON FOR EXAM: SUPERVISION OF 2ND TRIM ; 18 WKS. TIME OF EXAM: 10/24/2015 11:07 AM COMPARISON: First trimester ultrasound dated 08/02/15 TECHNIQUE: Transabdominal Detailed evaluation is performed to assess for size and dates of the fetus as well as attempt is made to assess the anatomy. Number: Single Presentation: Cephalic Placenta: Posterior Amniotic Fluid: Visually within normal limits Heart Rate: 144 bpm BPD: 4.5 cm. consistent with 19 weeks 5 days gestational age HC: 16.8 cm. consistent with 19 weeks 3 days gestational age AC: 13.8 cm. consistent with 19 weeks one day gestational age FL: 3.0 cm. consistent with 19 weeks 3 days gestational age EGA from current exam: 19 weeks 3 days gestation, plus or minus one week 3 days ALEXANDRO from current exam: 03/16/16 CLINICAL DATES: Gestational age 19 weeks 5 days, ALEXANDRO 03/14/16 EFW: 284 g, plus or minus 42 g FINDINGS: The formal anatomical survey was obtained. The following structures were or were not visualized. Lateral ventricles: visualized Cavum septum pellucidum: visualized Cerebellum: visualized Nasal Bone: Not well visualized due to lie Nose/lips: Not well visualized due to lie Spine, upper: visualized Spine, lower: visualized 4 chamber heart: Not well visualized due to lie Outflow tracts: Not well visualized due to lie Diaphragm: visualized Stomach: visualized PAGE 1 Signed Report (CONTINUED) DIAGNOSTIC IMAGING REPORT [facility] - [address] [place] [address] PHONE #: [phone] FAX #: [phone] Name: NELLY FLORES Loc: JUDY Radiology No: : 1995 Age: 20 Sex: F Status: REG I Unit No: [id number] Phys: Alva Matt Acct: [id number] Reason For Exam: des for Exam: SUPERVISION OF 2 Exam Date: 10/24/2015 ----- EXAMS: CPT CODE: [id number] PREG >1ST TRIMESTER 08362 <Continued> Bladder: visualized Kidneys: visualized Three vessel cord: visualized Cord insertion: visualized Upper extremities: Visualized Hands: not well visualized Lower extremities: visualized Feet: Not visualized due to lie IMPRESSION: 1. Single live intrauterine at approximately 19 weeks 3 days, with an ALEXANDRO of 03/16/16. These are concordant with clinical dates. 2. No gross abnormalities are seen at this time. Note that the following structures were not well visualized due to lie: Nasal bone, lips, four-chamber heart and outflow tracts, hands, feet. I have personally reviewed these images and approved or corrected the resident physician's interpretation. at 1145 RESIDENT: WENDI PATEL MD Reported and signed by: KEMI COELLO MD CC: Alva Mccall DO Technologist: ; TANYA HODGE Transcribed Date/Time: 10/24/2015 (3563)Ups Driver: CHIP Printed Date/Time: 10/24/2015 (1298) BATCH NO: N/A PAGE 2 Signed Report Radiology Report from [facility] on 03/19/2016 19:32:00 DIAGNOSTIC IMAGING REPORT [facility] - [address] [address] PHONE #: [phone] FAX #: [phone] Name: NELLY FLORES CARMEN Loc: W.3532 1 Radiology No: : 1995 Age: 21 Sex: F Status: ADM IN Unit No: [id number] Phys: Rula Best MD Acct: [id number] Reason For Exam: PT REPORTS PAIN IN RT. CALF. Exam Date: 03/19/2016 EXAMS: CPT CODE: [id number] DOPPLER LOW EXTR VENOUS 40703 REASON FOR EXAM: PT REPORTS PAIN IN RT. CALF. TIME OF EXAM: 03/19/2016 6:54 PM COMPARISON: None TECHNIQUE: Doppler, grayscale, and color-flow imaging of the bilateral lower extremity venous system was performed. RIGHT: The right common femoral vein, femoral vein, profunda femoris, and popliteal veins are normal in appearance. The vessels show normal compressibility, color flow, and Doppler augmentation. The right deep calf veins demonstrate no distinct intraluminal thrombus. LEFT: The left common femoral vein, femoral vein, profunda femoris, and popliteal veins are normal in appearance. The vessels show normal compressibility, color flow, and Doppler augmentation. The left deep calf veins demonstrate no distinct intraluminal thrombus. IMPRESSION: No evidence of deep venous thrombosis in the bilateral lower extremities. I have personally reviewed these images and corrected the resident physician's interpretation if necessary. at 192 RESIDENT: SHAHEEN KEY MD Reported and signed by: CRISTIANE MORALES MD CC: Alva Mccall DO Technologist: ALVA PASCAL Transcribed Date/Time: 03/19/2016 (1926)Ups Driver: PDAVIDAC Printed Date/Time: 03/19/2016 (1931) BATCH NO: N/A PAGE 1 Signed Report Radiology Report from [facility] on 11/24/2016 16:08:00 DIAGNOSTIC IMAGING REPORT [facility] - [address] [address] PHONE #: [phone] FAX #: [phone] Name: NELLY FLORES Loc: MELODIE Radiology No: : 1995 Age: 21 Sex: F Status: REG ER Unit No: [id number] Phys: Kamaljit Bejarano MD Acct: [id number] Reason For Exam: abd pain Exam Date: 11/24/2016 EXAMS: CPT CODE: [id number] PREG 1ST TRIMESTER 42920 TIME OF EXAM: 11/24/2016 3:50 PM REASON FOR EXAM: abd pain COMPARISON: None from this gestation. TECHNIQUE: Transpelvic sonogram was performed. FINDINGS: There is a single, live intrauterine with a crown-rump length measuring 11 mm, which is consistent with a 7 week 3 day gestational age fetus. ALEXANDRO corresponds to 07/10/2017. heart rate was documented at 172 beats per minute. anatomy is not well seen at this early state of gestation. No adnexal masses are identified. The ovaries are normal in appearance. The left ovary measures 4.0 x 3.7 x 3.5 cm, and the right measures 3.8 x 2.6 x 3.0 cm. There is no free fluid in the cul de sac. CLINICAL DATES: Gestational age 12 weeks zero days ALEXANDRO is 06/08/2017 IMPRESSION: 1. Single, live intrauterine at 7 weeks 3 days. Estimated due date is 07/10/2017. These are discordant with the clinical dates. Consider redating based on this exam, and followup sonography at approximately 18 weeks to assess growth and anatomy. 2. No abnormality is seen at this time. at 3408 Reported and signed by: ADORE SHEA MD CC: Technologist: ILANA CAMACHO Transcribed Date/Time: 11/24/2016 (0310)Ups Driver: YANDY Printed Date/Time: 11/24/2016 (0362) BATCH NO: N/A PAGE 1 Signed Report Radiology Report from [facility] on 12/11/2016 16:26:00 DIAGNOSTIC IMAGING REPORT [facility] - [address] [address] PHONE #: [phone] FAX #: [phone] Name: NELLY FLORES CARMEN Loc: W.ALEXANDRO Radiology No: : 1995 Age: 21 Sex: F Status: REG ER Unit No: [id number] Phys: [facility] Devante LudwigelianRenate Acct: [id number] Reason For Exam: VB/pelvic pain Exam Date: 12/11/2016 EXAMS: CPT CODE: [id number] PREG 1ST TRIMESTER 23261 HISTORY: Vaginal bleeding and pelvic pain COMPARISON: 11/24/2016 FINDINGS: Ultrasound examination of the gravid uterus was performed transabdominally. An intrauterine gestational sac is identified with a pole. Cardiac activity is identified at a rate of 170 beats per minute. A yolk sac is not identified. There is a small subchorionic hemorrhage noted along the right lateral gestational sac measuring 2.6 cm in maximum dimension. This encompasses less than 180? of the sac circumference. Neither ovary is visualized. biometry was not performed. There is no free fluid identified. IMPRESSION: Single live intrauterine gestation is noted. biometry was not performed. Small subchorionic hemorrhage is present encompassing less than 180? of the sac circumference. at 1621 Reported and signed by: RONEY SILVA MD CC: Technologist: TANYA HODGE Transcribed Date/Time: 12/11/2016 (1510)Ups Driver: TELLO Printed Date/Time: 12/11/2016 (2711) BATCH NO: N/A PAGE 1 Signed Report Radiology Report from [facility] on 01/23/2017 09:59:00 DIAGNOSTIC IMAGING REPORT [facility] - [address] [address] PHONE #: [phone] FAX #: [phone] Name: NELLY FLORES Loc: WMorSUZETTE Radiology No: : 1995 Age: 21 Sex: F Status: [facility] Unit No: [id number] Phys: Alva Matt Acct: [id number] Reason For Exam: VIABILITY Exam Date: 01/23/2017 EXAMS: CPT CODE: [id number] PREG >1ST TRIMESTER 29874 REASON FOR EXAM: VIABILITY TIME OF CURRENT STUDY: 01/23/2017 9:18 AM COMPARISON: 12/11/2016,, 11/24/2016 TECHNIQUE: Transabdominal Detailed evaluation is performed to assess for size and dates of the fetus, for biometry, as well as attempt is made to assess the anatomic detail. Number: Single Presentation: Cephalic Placenta: Anterior Cervix: Inadequately seen Amniotic Fluid: 10 cm largest vertical pocket 4.4 cm Heart Rate: 151 bpm BPD: 3.8 cm. consistent with 17 weeks 5 days gestational age HC: 14.9 cm. consistent with 18 weeks zero days gestational age AC: 12.5 cm. consistent with 18 weeks one day gestational age FL: 2.2 cm. consistent with 17 weeks 3 days gestational age EGA from current exam: 17 weeks 4 days gestation ALEXANDRO from current exam: 06/29/2017 CLINICAL DATES by first ultrasound: Gestational age 16 weeks zero days, ALEXANDRO 07/10/2017 EFW: 197 g FINDINGS: A formal anatomic is as following : Lateral ventricles: visualized Cavum septum pellucidum: visualized Cerebellum: visualized Nasal Bone: Not visualized Nose/lips: Suboptimally visualized Spine, upper: visualized Spine, lower: Suboptimally visualized 4 chamber heart: Not visualized Outflow tracts: Not visualized Diaphragm: visualized Stomach: visualized Kidneys: Suboptimally visualized PAGE 1 Signed Report (CONTINUED) DIAGNOSTIC IMAGING REPORT [facility] - [address] [place] [address] PHONE #: [phone] FAX #: [phone] Name: NELLY FLORES Loc: JUDY Radiology No: : 1995 Age: 21 Sex: F Status: REG CLI Unit No: [id number] Phys: Alva Matt Acct: [id number] Reason For Exam: des for Exam: VIABILITY Exam Date: 01/23/2017 EXAMS: CPT CODE: [id number] PREG >1ST TRIMESTER 54601 <Continued> Bladder: visualized Three vessel cord: visualized Cord insertion: visualized Upper extremities: visualized Hands: not well visualized Lower extremities: visualized Feet: Not visualized Gender: Not visualized IMPRESSION: 1. Single live intrauterine at approximately 17 weeks 4 days, with an ALEXANDRO of 06/29/2017. These are within with clinical dates. 2. No gross abnormalities are seen at this time. Multiple structures are inadequately visualized. Would suggest followup. 3. Lower normal growth since the previous exam dated 11/22/2016 . Suggest followup. at 0954 Reported and signed by: DENZEL WONG MD CC: Alva Solorzano DO Technologist: ISA COLLIER Transcribed Date/Time: 01/23/2017 (0954)Ups Driver: LINDA Printed Date/Time: 01/23/2017 (0907) BATCH NO: N/A PAGE 2 Signed Report Radiology Report from [facility] on 03/06/2017 14:07:00 DIAGNOSTIC IMAGING REPORT [address] [place] [address] PHONE #: [phone] FAX #: [phone] Name: NELLY FLORES Loc: WILMA Radiology No: : 1995 Age: 22 Sex: F Status: REG I Unit No: [id number] Phys: Alva Matt Acct: [id number] Reason For Exam: NORMAL PREG- ANATOMY Exam Date: 03/06/2017 EXAMS: CPT CODE: [id number] SONO FOLLOWUP 60169 REASON FOR EXAM: 22-year-old female presents for followup sonogram for anatomy not well seen previously. TIME OF EXAM: 03/06/2017 1:11 PM COMPARISON: sonogram dated 01/23/17 TECHNIQUE: High resolution grayscale and color-flow transabdominal ultrasound was performed. CLINICAL DATES: 22 weeks 0 days, ALEXANDRO: 07/10/2017 Number: single intrauterine Presentation: breech Placenta: anterior Cardiac activity: 148 bpm Amniotic Fluid Index: 13.5 cm, Largest Vertical Fluid Pocket: 6.3 cm BPD: 5.5 cm - 22 weeks 4 days HC: 20.9 cm - 23 weeks 0 days AC: 18.5 cm - 23 weeks 2 days FL: 3.9 cm - 22 weeks 4 days EGA from current exam: 22 weeks 6 days gestation ALEXANDRO from current exam: 07/04/2017 EFW: 550 +/- 82 g, 58th percentile according to clinical dates FOCUSED STRUCTURAL SURVEY: Nose/Lips: visualized Nasal bone: Not visualized Spine, lower: Not well visualized 4 chamber heart: visualized Left ventricular outflow tract: visualized Right ventricular outflow tract: visualized Kidneys: visualized Hands: not well visualized Feet: visualized Gender: Male IMPRESSION: 1. Single intrauterine at approximately 22 weeks 6 days with PAGE 1 Signed Report (CONTINUED) DIAGNOSTIC IMAGING REPORT [address] [address] PHONE #: [phone] FAX #: [phone] Name: NELLY FLORES Loc: [facility] Radiology No: : 1995 Age: 22 Sex: F Status: REG CLI Unit No: [id number] Phys: Alva Matt Acct: [id number] Reason For Exam: des for Exam: NORMAL PREG- SU Exam Date: 03/06/2017 EXAMS: CPT CODE: [id number] SONO FOLLOWUP 30216 <Continued> an ALEXANDRO of 07/04/2017. These are within range of clinical dates. 2. Visualization of anatomic structures as described. There is poor visualization of the lower spine, nasal bone and bilateral hands. No definite abnormality was appreciated. 3. Adequate interval growth since 01/23/2017. I have personally reviewed these images and corrected the resident physician's interpretation if necessary. at 1401 RESIDENT: EGORGETTE ROB MD Reported and signed by: RONEY SILVA MD CC: Alva Mccall DO Technologist: SAMRA GRULLON Transcribed Date/Time: 03/06/2017 (8638)Ups Driver: TELLO Printed Date/Time: 03/06/2017 (3930) BATCH NO: N/A PAGE 2 Signed Report Radiology Report from [facility] on 06/19/2017 11:48:00 PATIENT NAME: NELLY FLORES UNIT NO: [id number] EXAMS: CPT CODE: [id number] RENAL 60425 TIME OF EXAM: 06/19/2017 11:05 AM REASON FOR EXAM: 22-year-old female with bilateral flank pain, left greater than right since yesterday. Concern for pyelonephritis. Patient is about 38 weeks . COMPARISON: ultrasound 03/06/2017 TECHNIQUE: Bilateral renal sonogram. FINDINGS: Both kidneys are normal in size and echogenicity. The right kidney measures 12.0 cm in length and the left kidney measures 12.2 cm. The cortical thickness is appropriate. There is no evidence of calculi, focal mass or hydronephrosis. Views of the pelvis demonstrate a moderately distended urinary bladder. Bilateral ureteral jets are visualized. No large intraluminal masses or calculi are present. There is no ascites. heart rate: 129 bpm. IMPRESSION: 1. Normal sonographic appearance of the bilateral kidneys. No evidence of calculi, focal mass, or hydronephrosis. 2. heart rate of 129 bpm. Findings were discussed with Dr. Dominguez on 06/19/2017 11:23 AM. I have personally reviewed these images and approved or corrected the [facility] physician's interpretation. at 1142 RESIDENT: LOVE MOLINA DO Reported and signed by: PONCHO AGUERO MD [facility] NAME: NELLY FLORES [address] HP: [phone] AGE: 22 S:[place] [address] : 1995 LOC: W.2WOBED PHYS: Missy Atkinson MD R1 PHONE #: [phone] EXAM DATE: 06/19/2017 STATUS: REG ER FAX #: [phone] A#: [id number] U#: [id number] PAGE 1 Signed Report (CONTINUED) PATIENT NAME: NELLY FLORES CARMEN UNIT NO: [id number] EXAMS: CPT CODE: [id number] US RENAL 99623 <Continued> CC: Alva Mccall DO TECHNOLOGIST: ILANA CAMACOH TRANSCRIBED DATE/Time: 06/19/2017 1142 BY: BEE EXAM COMPLETE DATE/TIME: [id number] 1105 D/TM:06/19/2017 (1148) [facility] NAME: NELLY FLORES [address] HP: [phone] AGE: 22 S:[place] [address] : 1995 LOC: W.2WOBED PHYS: Missy Atkinson MD R1 PHONE #: [phone] EXAM DATE: 06/19/2017 STATUS: REG ER FAX #: [phone] A#: [id number] U#: [id number] PAGE 2 Signed Report *Final Page* Radiology Report from [facility] on 02/01/2018 08:13:00 PATIENT NAME: NELLY FLORES CARMEN UNIT NO: [id number] EXAMS: CPT CODE: [id number] CT ABD/PELVIS WITH CONTRAST 94109 REASON FOR EXAM: RLQ pain TIME OF EXAM: 01/31/2018 11:16 PM COMPARISON: None TECHNIQUE: Routine helical contrast-enhanced CT images were obtained through the abdomen and pelvis. Postprocessed coronal and sagittal reformats were reviewed. FINDINGS: Included Lung Bases: There is no consolidation or acute abnormality. CT Abdomen: The liver, spleen, kidneys, adrenal glands, and pancreas all have a normal appearance. 10 mm splenule seen along the medial aspect of the spleen (image 69 series 301). A post cholecystectomy changes are seen. There is no mesenteric or retroperitoneal adenopathy. The appendix has a normal appearance. The bowel loops are nondilated. There is no free fluid or free air. No focal bony abnormality is seen. CT Pelvis: Ureters and bladder are within normal limits. There is no free air, free fluid, loculated collection, or adenopathy in the pelvis. The osseous and soft tissue structures are age appropriate. IMPRESSION: 1. No acute abnormality in the abdomen or pelvis. Exam discussed with Keyon Nash MD at 01/31/2018 11:51 PM. I have personally reviewed these images and corrected the resident physician's interpretation if necessary. at 0807 RESIDENT: MORA PAZ MD Reported and signed by: RIO JACQUES MD [facility] NAME: NELLY FLORES [address] [place] [address] HP: [phone] AGE: 22 S:[place] [address] : 1995 LOC: W.ALEXANDRO PHYS: Keyon Martell MD PHONE #: [phone] EXAM DATE: 01/31/2018 STATUS: DEP ER FAX #: [phone] A#: [id number] U#: [id number] PAGE 1 Signed Report (CONTINUED) PATIENT NAME: NELLY FLORES UNIT NO: [id number] EXAMS: CPT CODE: [id number] CT ABD/PELVIS WITH CONTRAST 39685 <Continued> CC: Josue Waldron MD TECHNOLOGIST: KRISTIAN MORALES DEAVERS TRANSCRIBED DATE/Time: 02/01/2018 0807 BY: LANDON EXAM COMPLETE DATE/TIME: 20180131 018 D/TM:02/01/2018 (0813) [facility] NAME: NELLY FLORES [address] [place] [address] HP: [phone] AGE: 22 S:[place] [address] : 1995 LOC: W.ALEXANDRO PHYS: Keyon Martell MD PHONE #: [phone] EXAM DATE: 01/31/2018 STATUS: DEP ER FAX #: [phone] A#: [id number] U#: [id number] PAGE 2 Signed Report *Final Page* Encounters ACCT No. Visit Date/Time Discharge Status Pt. Type Provider Facility Loc./Unit Complaint [id number] 05/01/2015 19:04:00 05/01/2015 20:45:00 [id number] 01/31/2018 21:30:00 02/01/2018 00:04:00 DIS Emergency Saad PADRON, Keyon Rodas W.ALEXANDRO [id number] 06/19/2017 08:00:00 06/19/2017 12:20:00 [facility] W.2WOBED [id number] 03/15/2017 21:58:00 03/16/2017 01:12:00 DIS Emergency Burce Munguia [facility] W.2WOBED [id number] 03/06/2017 12:07:00 03/06/2017 12:07:00 DIS Outpatient Bruce Munguia [facility] WSANJUANITA [id number] 02/09/2017 00:01:00 02/09/2017 02:24:00 DIS Emergency Anne PADRON, Eliana Moreland W.ALEXANDRO [id number] 01/23/2017 08:18:00 01/23/2017 08:18:00 DIS Outpatient [facility] [id number] 12/11/2016 14:38:00 12/11/2016 16:48:00 DIS Emergency Jayant Ferrera DO W.ALEXANDRO [id number] 12/02/2016 22:38:00 12/02/2016 23:24:00 DIS Emergency Nancy PADRON, [facility] W.ALEXANDRO [id number] 11/24/2016 14:19:00 11/24/2016 16:43:00 DIS Emergency Nancy PADRON, [facility] W.MCKENNA [id number] 03/17/2016 04:59:00 03/20/2016 16:30:00 DIS Inpatient [facility] W.5WH [id number] 02/12/2016 17:43:00 02/13/2016 06:11:00 DIS Outpatient [facility] W.2WW [id number] 12/22/2015 18:12:00 12/22/2015 23:12:00 DIS Emergency [facility] W.2WOBED [id number] 10/24/2015 10:30:00 10/24/2015 23:59:59 CLS Preadmit [facility]ung[facility] W.SUZETTE [id number] 10/23/2015 17:56:00 Document Registration [id number] 08/03/2017 14:50:00 08/03/2017 23:59:59 CLS Outpatient BRUCE-ALVA MUNGUIA [facility] HEMATOLOGY NURSE [address] [place] [address] LOCATION [id number] 07/06/2017 14:30:00 07/06/2017 23:59:59 CLS Outpatient ANISAK-ALVA MUNGUIA [facility] HEMATOLOGY NURSE [facility] [address] LOCATION [id number] 06/26/2017 08:49:00 06/26/2017 23:59:59 CLS Outpatient BRUCE-ALVA MUNGUIA [facility] HEMATOLOGY NURSE [facility] [address] LOCATION [id number] 06/17/2017 08:03:00 06/17/2017 23:59:59 CLS Outpatient BRUCE-ALVA MUNGUIA [facility] HEMATOLOGY NURSE [facility] LOCATION [id number] 05/25/2017 15:34:00 05/25/2017 23:59:59 [facility] LOCATION [id number] 04/06/2017 14:19:00 04/06/2017 23:59:59 [facility] LOCATION [id number] 02/19/2017 12:48:00 02/19/2017 23:59:59 CLS Outpatient CHRISTIANO [facility] HEMATOLOGY NURSE [facility] [address] LOCATION [id number] 01/22/2017 14:36:00 01/22/2017 23:59:59 CLS Outpatient BRUCE-NILDA [facility] HEMATOLOGY NURSE [facility] [address] LOCATION [id number] 04/04/2016 10:22:00 04/04/2016 23:59:59 CLS Outpatient CHRISTIANO [facility] HEMATOLOGY NURSE [facility] LOCATION [id number] 03/24/2016 12:24:00 03/24/2016 23:59:59 CLS Outpatient CHRISTIANO [facility] HEMATOLOGY NURSE [facility] LOCATION [id number] 03/14/2016 09:13:00 03/14/2016 23:59:59 CLS Outpatient EMILY WALTON [facility] HEMATOLOGY NURSE [facility] [address] LOCATION [id number] 02/24/2017 12:04:00 Document Registration [id number] 01/27/2017 13:21:00 Document Registration [id number] 04/04/2016 10:22:00 Document Registration [id number] 03/25/2016 16:10:00 Document Registration [id number] 03/14/2016 10:39:00 Document Registration [id number] 08/02/2015 08:22:00 08/02/2015 23:59:59 CLS Outpatient Christiano DO Al[facility] [id number] 09/20/2018 13:10:00 09/20/2018 23:59:59 CLS [facility]
--- NOTE | 2018-09-29 23:34 | ED Abdominal Pain ---
General Stated Complaint: UPPER ABD PAIN;LOOSE STOOL;VOMITING Source of Information: Patient History of Present Illness Date Seen by Provider: September 29, 2018 Time Seen by Provider: 23:34 Initial Comments 23-year-old female presenting with complaints of epigastric cramping pain as well as nausea, vomiting, diarrhea. She states that this has developed in the last few days however is much worse today. She had gone to work at 4 PM today and states that she's had several episodes of diarrhea since can work. She's also had increasing epigastric cramping pain. She states that she is not sure if this was with menstrual cramping or what was causing the pain. She has also had nausea with vomiting and diarrhea. She states that she is just having watery diarrhea at this point. She has also felt her heart racing at times and lightheaded tonight. She has some subjective chills. She denies any actual fever. Her pain was getting worse so she came here from work. Allergies and Home Medications Allergies Coded Allergies: No Known Drug Allergies (Unverified , 09/29/18) Home Medications Dicyclomine HCl 20 Mg Tablet, 20 MG PO TID PRN for ABDOMINAL PAIN Prescribed by: MELODIE CRAIG on 09/30/18 0111 Patient Home Medication List Home Medication List Reviewed: Yes Review of Systems Review of Systems Constitutional: chills, dizziness; No fever; malaise EENTM: No Symptoms Reported Respiratory: No Symptoms Reported Cardiovascular: Lightheadedness, Palpitations Gastrointestinal: See HPI, Abdominal Pain (cramping epigastric pain), Diarrhea, Nausea, Poor Appetite; Denies Rectal Bleeding; Vomiting Genitourinary: Denies Frequency, Denies Flank Pain, Denies Hematuria Musculoskeletal: no symptoms reported Skin: no symptoms reported Psychiatric/Neurological: No Symptoms Reported Endocrine: No Symptoms Reported Past Yohkfox-Xbknqn-Voleys Hx Past Med/Social Hx: Reviewed Nursing Past Med/Soc Hx Patient Social History Recent Foreign Travel: No Contact w/Someone Who Travel: No Physical Exam Vital Signs Vital Signs - First Documented 09/29/18 23:30 Temp 98.3 Pulse 92 Resp 18 B/P (MAP) 141/93 (109) Pulse Ox 99 O2 Delivery Room Air Capillary Refill : Height/Weight/BMI Height: '" Weight: lbs. oz. kg; BMI Method: General Appearance: WD/WN, no apparent distress HEENT: PERRL/EOMI, normal ENT inspection, pharynx normal Neck: non-tender, supple Respiratory: chest non-tender, lungs clear, normal breath sounds, no res piratory distress, no accessory muscle use Cardiovascular: normal peripheral pulses, regular rate, rhythm Gastrointestinal: normal bowel sounds, soft, no pulsatile mass, tenderness (epigastric pain with palpation) Extremities: normal range of motion, non-tender, normal inspection, no pedal edema, no calf tenderness, normal capillary refill Back: no vertebral tenderness, CVA tenderness (R) Neurologic/Psychiatric: alert, normal mood/affect, oriented x 3 Skin: normal color, warm/dry Progress/Results/Core Measures Results/Orders Lab Results Laboratory Tests Test 09/29/18 00:00 09/29/18 00:02 Range/Units White Blood Count 8.5 4.3-11.0 10^3/uL Red Blood Count 4.82 4.35-5.85 10^6/uL Hemoglobin 13.6 11.5-16.0 G/DL Hematocrit 41 35-52 % Mean Corpuscular Volume 86 80-99 FL Mean Corpuscular Hemoglobin 28 25-34 PG Mean Corpuscular Hemoglobin Concent 33 32-36 G/DL Red Cell Distribution Width 14.2 10.0-14.5 % Platelet Count 275 130-400 10^3/uL Mean Platelet Volume 10.5 H 7.4-10.4 FL Neutrophils (%) (Auto) 61 42-75 % Lymphocytes (%) (Auto) 29 12-44 % Monocytes (%) (Auto) 7 0-12 % Eosinophils (%) (Auto) 2 0-10 % Basophils (%) (Auto) 0 0-10 % Neutrophils # (Auto) 5.2 1.8-7.8 X 10^3 Lymphocytes # (Auto) 2.4 1.0-4.0 X 10^3 Monocytes # (Auto) 0.6 0.0-1.0 X 10^3 Eosinophils # (Auto) 0.2 0.0-0.3 10^3/uL Basophils # (Auto) 0.0 0.0-0.1 10^3/uL Sodium Level 139 135-145 MMOL/L Potassium Level 4.5 3.6-5.0 MMOL/L Chloride Level 102 98-107 MMOL/L Carbon Dioxide Level 16 L 21-32 MMOL/L Anion Gap 21 H 5-14 MMOL/L Blood Urea Nitrogen 13 7-18 MG/DL Creatinine 0.76 0.60-1.30 MG/DL Estimat Glomerular Filtration Rate > 60 BUN/Creatinine Ratio 17 Glucose Level 97 70-105 MG/DL Calcium Level 8.6 8.5-10.1 MG/DL Corrected Calcium 8.6 8.5-10.1 MG/DL Total Bilirubin 0.3 0.1-1.0 MG/DL Aspartate Amino Transf (AST/SGOT) 32 5-34 U/L Alanine Aminotransferase (ALT/SGPT) 25 0-55 U/L Alkaline Phosphatase 88 40-136 U/L Total Protein 7.1 6.4-8.2 GM/DL Albumin 4.0 3.2-4.5 GM/DL Lipase 25 8-78 U/L Urine Color YELLOW Urine Clarity SL CLOUDY Urine pH 5.5 5-9 Urine Specific [place] >1.030 1.016-1.022 Urine Protein TRACE NEGATIVE Urine Glucose (UA) NEGATIVE NEGATIVE Urine Ketones NEGATIVE NEGATIVE Urine Nitrite NEGATIVE NEGATIVE Urine Bilirubin 1+ H NEGATIVE Urine Urobilinogen 0.2 NORMAL MG/DL Urine Leukocyte Esterase NEGATIVE NEGATIVE Urine RBC (Auto) NEGATIVE NEGATIVE Urine RBC NONE /HPF Urine WBC NONE /HPF Urine Squamous Epithelial Cells 10-25 H /HPF Urine Crystals NONE /LPF Urine Bacteria MODERATE H /HPF Urine Casts NONE /LPF Urine Mucus MODERATE H /LPF Urine Culture Indicated NO Urine Test NEGATIVE NEGATIVE My Orders Orders - MELODIE CRAIG MD Ua Culture If Indicated (09/29/18 23:35) Hcg,Qualitative Urine (09/29/18 23:35) Comprehensive Metabolic Panel (09/29/18 23:49) Lipase (09/29/18 23:49) Ed Iv/Invasive Line Start (09/29/18 23:49) Cbc With Automated Diff (09/29/18 23:49) Ct Abdomen/Pelvis Wo (09/29/18 23:49) Ns Iv 1000 Ml (Sodium Chloride 0.9%) (09/30/18 00:00) Ondansetron Injection (Zofran Injectio (09/29/18 23:49) Ketorolac Injection (Toradol Injection) (09/29/18 23:49) Rx-Dicyclomine Capsule (Rx-Bentyl Capsul (09/30/18 01:27) Rx-Dicyclomine Capsule (Rx-Bentyl Capsul (09/30/18 01:24) Vital Signs/I&O 09/29/18 09/30/18 23:30 01:35 Temp 98.3 Pulse 92 80 Resp 18 16 B/P (MAP) 141/93 (109) 120/54 (76) Pulse Ox 99 100 O2 Delivery Room Air Room Air Progress Progress Note #1: Progress Note Check basic labs and give IV fluids. We'll also obtain a CT scan of her abdomen and pelvis. Advised that this may all just be a viral gastroenteritis but will evaluate for other abdominal pathology to be causing her symptoms such as pancreatitis or kidney stone. She has previously had a cholecystectomy in 2014. She still has her appendix but is not having any prior lower quadrant pain. Her epigastric pain is not radiating anywhere and is just in the epigastric area and across her upper abdomen. Progress Note #2: Time: 00:39 Progress Note CBC and chemistry are normal. Her urinalysis is showing that she is a little dehydrated with an elevated specific gravity and concentration. test is negative as well. Lipase is also normal. Awaiting imaging of her abdomen/pelvis. Progress Note #3: Time: 01:[address] scan also negative. Will treat symptomatically and have her follow up with clinic. Diagnostic Imaging Diagonstic Imaging: CT Plain Films/CT/US/NM/MRI: abdomen, pelvis Comments Post cholecystectomy. Otherwise unremarkable exam. read by Dr. Roni Angel MD at 0054 and faxed at [phone]. Reviewed: Reviewed [facility] Departure Impression Primary Impression: Nausea and vomiting Qualified Codes: R11.14 - Bilious vomiting Additional Impressions: Dehydration Diarrhea Qualified Codes: R19.7 - Diarrhea, unspecified Colicky epigastric pain Disposition: HOME, SELF-CARE Condition: Stable Departure-Patient Inst. Decision time for Depature: 01:21 Referrals: NO,LOCAL PHYSICIAN (PCP) Primary Care Physician Patient Instructions: Acute Abdomen (Belly Pain), Adult (DC), Dehydration, Adult (DC), Diarrhea in Adolescents and Adults, Nausea and Vomiting, Adult (DC) Add. Discharge Instructions: Check back with clinic for continued symptoms or if not improving with treatment. Use the Bentyl (Dicyclomine) for abdominal cramping and nausea. If having fever over 101 F, worsening pain or not improving with treatment in 2- 3 days then recheck with clinic or return for further evaluation. Scripts Dicyclomine HCl (Dicyclomine HCl) 20 Mg Tablet 20 MG PO TID PRN for ABDOMINAL PAIN for 5 Days, #15 TAB 0 Refills Prov: MELODIE CRAIG MD 09/30/18 Work/School Note: Family Work Note, Patient Received Medical Care In the Emergency Department On: September 30, 2018 Patient Will Be Able to Return to Work/School On: Oct 04, 2018 Work Release Form Date Seen in the Emergency Department: September 30, 2018 Return to Work: Oct 04, 2018 Restrictions: No Restrictions MELODIE CRAIG MD September 29, 2018 23:34
[2018-09-30] MEDS: ONDANSETRON 4 MG/2 ML (SDV) Z0FRAN IVP STA (00:08)
[2018-09-30] MEDS: KETOROLAC 30 MG/ML VIAL IVP STA (00:08)
[2018-09-30] MEDS: NS IV 1000 ML 1,000 ML IV SCH (00:09)
[2018-09-30 00:18] LABS: BACTERIA,URINE MODERATE /HPF; CLARITY,URINE SL CLOUDY; COLOR,URINE YELLOW; GLUCOSE, URINE (UA) NEGATIVE (NEGATIVE); KETONES,URINE NEGATIVE (NEGATIVE); LEUKOCYTE ESTERASE ,URINE NEGATIVE (NEGATIVE); NITRITE,URINE NEGATIVE (NEGATIVE); PH,URINE 5.5 (5-9); PROTEIN,URINE TRACE (NEGATIVE); UROBILINOGEN,URINE 0.2 MG/DL (NORMAL)
[2018-09-30 00:19] LABS: HCG,QUALITATIVE URINE NEGATIVE (NEGATIVE)
[2018-09-30 00:21] LABS: HEMATOCRIT 41 % (35-52); HEMOGLOBIN 13.6 G/DL (11.5-16.0); MEAN CORPUSCULAR HEMOGLOBIN 28 PG (25-34); WHITE BLOOD COUNT 8.5 10^3/uL (4.3-11.0)
[2018-09-30 00:22] LABS: BASOPHILS % (AUTO) 0 % (0-10); EOSINOPHILS # (AUTO) 0.2 10^3/uL (0.0-0.3); EOSINOPHILS % (AUTO) 2 % (0-10); LYMPHOCYTES # (AUTO) 2.4 X 10^3 (1.0-4.0); LYMPHOCYTES % (AUTO) 29 % (12-44); MEAN CORPUSCULAR HGB CONC 33 G/DL (32-36); MEAN CORPUSCULAR VOLUME 86 FL (80-99); MEAN PLATELET VOLUME 10.5 FL (7.4-10.4); MONOCYTES # (AUTO) 0.6 X 10^3 (0.0-1.0); MONOCYTES % (AUTO) 7 % (0-12); NEUTROPHILS # (AUTO) 5.2 X 10^3 (1.8-7.8); NEUTROPHILS % (AUTO) 61 % (42-75); PLATELET COUNT 275 10^3/uL (130-400); RED CELL DISTRIBUTION WIDTH 14.2 % (10.0-14.5)
[2018-09-30 00:28] LABS: CARBON DIOXIDE 16 MMOL/L (21-32); CHLORIDE 102 MMOL/L (98-107); POTASSIUM 4.5 MMOL/L (3.6-5.0); SODIUM 139 MMOL/L (135-145)
[2018-09-30 00:29] LABS: ALANINE AMINOTRANSFERASE 25 U/L (0-55); ALKALINE PHOSPHATASE 88 U/L (40-136); BILIRUBIN,TOTAL 0.3 MG/DL (0.1-1.0); BUN/CREATININE RATIO 17; CALCIUM 8.6 MG/DL (8.5-10.1); CREATININE SERUM 0.76 MG/DL (0.60-1.30); GFR ESTIMATED > 60; GLUCOSE 97 MG/DL (70-105); LIPASE 25 U/L (8-78); TOTAL PROTEIN 7.1 GM/DL (6.4-8.2)
[2018-09-30] MEDS ORDERED: DICY20TA10 PO (01:11)
[2018-09-30] MEDS ORDERED: DICYCLOMINE 10 MG (BENTYL) CAP PO STA (01:13)
[2018-09-30] MEDS ORDERED: RX-DICYCLOMINE 10 MG (BENTYL) CAP PPK#4 PO ONE (01:24)
[2018-09-30] MEDS: RX-DICYCLOMINE 10 MG (BENTYL) CAP PPK#4 PO STA (01:30)
[2018-09-30 01:35] VITALS: BP 120/54
--- NOTE | 2018-09-30 06:32 | Diagnostic Imaging Report ---
PROCEDURE: CT abdomen and pelvis without contrast. TECHNIQUE: Multiple contiguous axial images were obtained through the abdomen and pelvis without the use of intravenous contrast. Auto Exposure Controls were utilized during the CT exam to meet ALARA standards for radiation dose reduction. INDICATION: Abdominal pain with nausea, emesis and diarrhea. FINDINGS: Gallbladder is surgically absent. No focal hepatic or splenic lesion is identified. No pancreatic, adrenal gland or renal abnormality is seen on the noncontrasted exam. There is no free fluid within the abdomen or pelvis. There is no evidence of localized inflammation, although there is density seen within the subcutaneous tissues of the anterior abdominal wall which may be related to previous surgery. IMPRESSION: No acute abnormality is detected. Dictated by: Dictated on workstation # [id number]
[2018-09-30 16:41] LABS: BILIRUBIN,URINE 1+ (NEGATIVE)
== END 2018-09-30 01:30 | disposition home or self-care (01) ==
LOC: ER FS 23:24
DX: R11.2 Nausea with vomiting, unspecified (principal); R19.7 Diarrhea, unspecified; E86.0 Dehydration; R10.13 Epigastric pain
CPT/HCPCS: 36415; 74176; 80053; 81000; 83690; 84703; 85025; 96361; 96374; 96375

== ENCOUNTER 2018-12-08 19:14 | Emergency (ER) | payer MEDICAID, OTHER ==
[~2018-12-08] VITALS: Ht 170.2 cm; Wt 145.6 kg
[~2018-12-08 19:14] MED LIST: DICY20TA10 PO
--- OUTSIDE RECORDS SUMMARY | 2018-12-08 19:21 | XMS REPORT | Continuity of Care Document ---
Author Organization Unknown Address Unknown Phone Unavailable Allergies Active Description Code Type Severity Reaction Onset Reported/Identified Relationship to Patient Clinical Status Yes No known drug allergies [id number] ND N/A N/A 05/01/2015 Confirmed or Verified Yes bismuth subsalicylate bismuth subsalicylate Drug Allergy Severe THROAT CLOSES 11/24/2016 Yes No Known Allergies No Known Allergies Drug Allergy Unknown N/A 03/15/2017 Yes No Known Drug Allergy NKDA N/A N/A 08/04/2017 Yes No Known Drug Allergies [id number] Drug Allergy Unknown N/A 09/29/2018 Medications Medication Packaging Start Date Stop Date [...] Attending Type Code Diagnosis Diagnosed By 05/01/2015 EDIN PADRON, OLGA Ayala R21 Rash and other nonspecific skin eruption 05/01/2015 OLGA JESUS MD R21. 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 03/17/2016 Anisamichelle Munguia Alva OVIEDO O14.94 UNSPECIFIED PRE-ECLAMPSIA, COMPLICATING CHILDBIRTH 03/17/2016 Anisamichelle Munguia Alva OVIEDO O34.219 MATERNAL CARE FOR UNSP TYPE SCAR FROM PREVIOUS CLARY 03/17/2016 Bruce Nilda Alva OVIEDO O75.89 OTHER SPECIFIED COMPLICATIONS OF LABOR AND DELIVER 03/17/2016 Bruce Nilda Alva OVIEDO O99.334 SMOKING (TOBACCO) COMPLICATING CHILDBIRTH 03/17/2016 Bruce Nilda Alva OVIEDO O99.344 OTHER MENTAL DISORDERS COMPLICATING CHILDBIRTH 03/17/2016 Bruce Nilda Alva OVIEDO Z37.0 SINGLE LIVE 03/17/2016 Bruce [...] gynecological examination (general) (routine) without abnormal findings 09/30/2018 MELODIE CRAIG MD Ot E86.0 DEHYDRATION 09/30/2018 MELODIE CRAIG MD Ot R10.13 EPIGASTRIC PAIN 09/30/2018 MELODIE CRAIG MD Ot R11.2 NAUSEA WITH VOMITING, UNSPECIFIED 09/30/2018 MELODIE CRAIG MD Ot R19.7 DIARRHEA, UNSPECIFIED 10/02/2018 MELODIE CRAIG MD Ot E86.0 DEHYDRATION 10/02/2018 MELODIE CRAIG MD Ot R10.13 EPIGASTRIC PAIN 10/02/2018 MELODIE CRAIG MD Ot R11.2 NAUSEA WITH VOMITING, UNSPECIFIED 10/02/2018 MELODIE CRAIG MD, Ot R19.7 DIARRHEA, UNSPECIFIED Procedures Code [place] [address] URINE TEST OLGA JESUS MD 05/01/2015 17490 THER/PROPH/DIAG INJ SC/IM OLGA JESUS MD 05/01/2015 59914 EMERGENCY DEPT VISIT OLGA JESUS MD 05/01/2015 J1030 METHYLPREDNISOLONE 40 MG INJ OLGA JESUS MD 05/01/2015 J1040 METHYLPREDNISOLONE 80 MG INJ OLGA JESUS MD 05/01/2015 [id number] EXTRACTION OF POC, LOW CERVICAL, OPEN APPROACH Bruce Munguia DO Alva Oh 03/17/2016 Results Test Result Range Urine - [...] INTACT - 11/24/16 15:11 HCG QUANT INTACT 22718 mIU/mL URINALYSIS, ROUTINE - 12/02/16 22:59 UA [...] INTACT - 12/11/16 15:02 HCG QUANT INTACT 24771 mIU/mL URINALYSIS, ROUTINE - 12/11/16 15:25 UA [...] - 01/31/18 22:14 LIPASE 162 Units/L 73-393 Complete blood count (CBC) with automated white blood cell (WBC) differential - 09/29/18 00:00 Blood leukocytes automated count (number/volume) 8.5 10*3/uL 4.3-11.0 Blood erythrocytes automated count (number/volume) 4.82 10*6/uL 4.35-5.85 Venous blood hemoglobin measurement (mass/volume) 13.6 g/dL 11.5-16.0 Blood hematocrit (volume fraction) 41 % 35-52 Automated erythrocyte mean corpuscular volume 86 [foz_us] 80-99 Automated erythrocyte mean corpuscular hemoglobin (mass per erythrocyte) 28 pg 25-34 Automated erythrocyte mean corpuscular hemoglobin concentration measurement (mass/volume) 33 g/dL 32-36 Automated erythrocyte distribution width ratio 14.2 % 10.0- 14.5 Automated blood platelet count (count/volume) 275 10*3/uL 130-400 Automated blood platelet mean volume measurement 10.5 [foz_us] 7.4-10.4 Automated blood neutrophils/100 leukocytes 61 % 42-75 Automated blood lymphocytes/100 leukocytes 29 % 12-44 Blood monocytes/100 leukocytes 7 % 0-12 Automated blood eosinophils/100 leukocytes 2 % 0-10 Automated blood basophils/100 leukocytes 0 % 0-10 Blood neutrophils automated count (number/volume) 5.2 10*3 1.8-7.8 Blood lymphocytes automated count (number/volume) 2.4 10*3 1.0-4.0 Blood monocytes automated count (number/volume) 0.6 10*3 0.0- 1.0 Automated eosinophil count 0.2 10*3/uL 0.0-0.3 Automated blood basophil count (count/volume) 0.0 10*3/uL 0.0-0.1 Comprehensive metabolic panel - 09/29/18 00:00 Serum or plasma sodium measurement (moles/volume) 139 mmol/L 135-145 Serum or plasma potassium measurement (moles/volume) 4.5 mmol/L 3.6-5.0 Serum or plasma chloride measurement (moles/volume) 102 mmol/L 98-107 Carbon dioxide 16 mmol/L 21-32 Serum or plasma anion gap determination (moles/volume) 21 mmol/L 5-14 Serum or plasma urea nitrogen measurement (mass/volume) 13 mg/dL 7-18 Serum or plasma creatinine measurement (mass/volume) 0.76 mg/dL 0.60-1.30 Serum or plasma urea nitrogen/creatinine mass ratio 17 NRG Serum or plasma creatinine measurement with calculation of estimated glomerular filtration rate > NRG Serum or plasma glucose measurement (mass/volume) 97 mg/dL 70-105 Serum or plasma calcium measurement (mass/volume) 8.6 mg/dL 8.5-10.1 Serum or plasma total bilirubin measurement (mass/volume) 0.3 mg/dL 0.1-1.0 Serum or plasma alkaline phosphatase measurement (enzymatic activity/volume) 88 U/L 40-136 Serum or plasma aspartate aminotransferase measurement (enzymatic activity/volume) 32 U/L 5-34 Serum or plasma alanine aminotransferase measurement (enzymatic activity/volume) 25 U/L 0-55 Serum or plasma protein measurement (mass/volume) 7.1 g/dL 6.4-8.2 Serum or plasma albumin measurement (mass/volume) 4.0 g/dL 3.2-4.5 CALCIUM CORRECTED 8.6 mg/dL 8.5-10.1 Lipase - 09/29/18 00:00 Lipase 25 U/L 8-78 Complete urinalysis with reflex to culture - 09/29/18 00:02 Urine color determination YELLOW NRG Urine clarity determination SL CLOUDY NRG Urine pH measurement by test strip 5.5 5-9 Specific gravity of urine by test strip > 1.016-1.022 Urine protein assay by test strip, semi-quantitative TRACE NEGATIVE Urine glucose detection by automated test strip NEGATIVE NEGATIVE Erythrocytes detection in urine sediment by light microscopy NEGATIVE NEGATIVE Urine ketones detection by automated test strip NEGATIVE NEGATIVE Urine nitrite detection by test strip NEGATIVE NEGATIVE Urine total bilirubin detection by test strip 1+ NEGATIVE Urine urobilinogen measurement by automated test strip (mass/volume) 0.2 mg/dL NORMAL Urine leukocyte esterase detection by dipstick NEGATIVE NEGATIVE Automated urine sediment erythrocyte count by microscopy (number/high power field) NONE NRG Automated urine sediment leukocyte count by microscopy (number/high power field) NONE NRG Bacteria detection in urine sediment by light microscopy MODERATE NRG Squamous epithelial cells detection in urine sediment by light microscopy 10-25 NRG Crystals detection in urine sediment by light microscopy NONE NRG Casts detection in urine sediment by light microscopy NONE NRG Mucus detection in urine sediment by light microscopy MODERATE NRG Complete urinalysis with reflex to culture NO NRG Urine beta human chorionic gonadotropin (hCG) measurement - 09/29/18 00:02 Urine beta human chorionic gonadotropin (hCG) measurement NEGATIVE NEGATIVE HCG, QUANTITATIVE - 10/14/18 13:23 HCG, TOTAL, QN 4118 mIU/mL NR SUREPATH PAP RFX HPV mRNA E6/E7 - 10/27/18 14:14 CLINICAL INFORMATION: NRG LMP: NRG PREV. PAP: NRG PREV. BX: NRG SOURCE: Vagina NRG STATEMENT OF ADEQUACY: NRG INTERPRETATION/RESULT: NR WINDOW DRESSER: NRG COMMENT NRG SYPHILIS (RPR W/ REFLEX CONFIRMATION) - 10/27/18 14:56 RPR (DX) W/REFL TITER AND CONFIRMATORY TESTING NON-REACTIVE NON-REACTIVE HEP B SURFACE ANTIGEN - 10/27/18 14:56 HEPATITIS B SURFACE ANTIGEN NON-REACTIVE NON-REACTIVE HCG, QUANTITATIVE - 10/27/18 14:56 [place] [address] mIU/mL NRG RUBELLA IMMUNE STATUS - 10/27/18 14:56 RUBELLA ANTIBODY (IGG) 2.52 index NRG HSV 1/2 ANTIBODY IgM - 10/27/18 14:56 HSV 1 IGM SCREEN NEGATIVE NRG HSV 2 IGM SCREEN NEGATIVE NRG Radiology Report from [facility] on 08/02/2015 12:25:00 DIAGNOSTIC IMAGING REPORT [facility] - [address] [place] [address] PHONE #: [phone] FAX #: [phone] Name: NELLY FLORES Loc: EMorSUZETTE Radiology No: : 1995 Age: 20 Sex: F Status: [facility] Unit No: [id number] Phys: Alva Matt Acct: [id number] Reason For Exam: CRAMPING Exam Date: 08/02/2015 Report Has Been Amended EXAMS: CPT CODE: [id number] PREG 1ST TRIMESTER 57885 Addendum - 08/02/2015 SIGNED 08/02/2015 ADDENDUM: [id number] US/PREG1 Addendum: The heart rate was remeasured. [...] by: PONCHO AGUERO MD Transcribed: 08/02/2015 (1220) [facility] Report REASON FOR EXAM: CRAMPING . Patient [...] 1 Signed Report (CONTINUED) [facility] [address] [place] [address] PHONE #: [phone] FAX #: [phone] Name: NELLY FLORES Loc: ABRAM Radiology No: : 1995 Age: 20 Sex: F Status: REG I Unit No: [id number] Phys: Alva Matt Acct: [id number] Reason For Exam: des for Exam: CRAMPING Exam Date: 08/02/2015--------- Report Has Been Amended EXAMS: CPT CODE: [id number] PREG 1ST TRIMESTER 69605 <Continued> heart rate was documented at 66 [...] DO Technologist: JASWINDER STEWART Transcribed Date/Time: 08/02/2015 (0905)Fire Manager: BEE Printed Date/Time: 08/02/2015 (1225) BATCH NO: N/A PAGE 2 Signed Report [facility] on 10/23/2015 19:39:00 DIAGNOSTIC IMAGING REPORT [facility] - [address] [address] PHONE #: [phone] FAX #: [phone] Name: NELLY FLORES Loc: MELODIE Radiology No: : 1995 Age: 20 Sex: F Status: REG ER Unit No: [id number] Phys: Thong Kwan MD Acct: [id number] Reason For Exam: s/p fall Exam Date: 10/23/2015 EXAMS: CPT CODE: [id number] CT HEAD W/O CONTRAST 84641 TIME OF EXAM: 10/23/2015 7:24 PM REASON [...] Reported and signed by: KEMI FREIRE MD PAGE 1 Signed Report (CONTINUED) DIAGNOSTIC IMAGING REPORT [facility] - [address] [place] [address] PHONE #: [phone] FAX #: [phone] Name: NELLY FLORES Loc: MELODIE Radiology No: : 1995 Age: 20 Sex: F Status: REG ER Unit No: [id number] Phys: Thong Kwan MD Acct: [id number] Reason For Exam: s/p fall Exam Date: 10/23/2015 EXAMS: CPT CODE: [id number] CT HEAD W/O CONTRAST 83379 <Continued> CC: Technologist: AFSHIN RICKETTS Transcribed Date/Time: 10/23/2015 (1933)Fire Manager: CHIP Printed Date/Time: 10/23/2015 (1938) BATCH NO: N/A PAGE 2 Signed Report Radiology Report from [facility] on 10/23/2015 19:39:00 DIAGNOSTIC IMAGING REPORT [facility] - [address] [address] PHONE #: [phone] FAX #: [phone] Name: NELLY FLORES Loc: MELODIE Radiology No: : 1995 Age: 20 Sex: F Status: REG ER Unit No: [id number] Phys: Thong Kwan MD Acct: [id number] Reason For Exam: s/p fall Exam Date: 10/23/2015 EXAMS: CPT CODE: [id number] CT CERVICAL SPINE W/O 45535 TIME OF EXAM: 10/23/2015 7:24 PM REASON FOR EXAM: s/p fall COMPARISON: None. TECHNIQUE: Noncontrast-enhanced helical images of the cervical spine were obtained from the skull base to the lung apices. Sagittal and coronal reformats were also reviewed. FINDINGS: Pheresis Specialist views and reformats demonstrate straightening of the [...] CC: Technologist: AFSHIN RICKETTS Transcribed Date/Time: 10/23/2015 (1933)Fire Manager: CHIP Printed Date/Time: 10/23/2015 (1938) BATCH NO: N/A PAGE 1 Signed Report Radiology Report from [facility] on 10/24/2015 11:51:00 DIAGNOSTIC IMAGING REPORT [facility] - [address] [address] PHONE #: [phone] FAX #: [phone] Name: MARKNELLY ANN Loc: JUDY Radiology No: : 1995 Age: 20 Sex: F Status: REG [facility] Unit No: [id number] Phys: Alva Matt Acct: [id number] Reason For Exam: SUPERVISION OF 2ND TRIM ; 18 WK Exam Date: 10/24/2015 EXAMS: CPT CODE: [id number] PREG >1ST TRIMESTER 73389 REASON FOR EXAM: SUPERVISION OF 2ND TRIM [...] Gestational age 19 weeks 5 days, ALEXANDRO 11/11/16 EFW: 284 g, plus or minus 42 [...] 1 Signed Report (CONTINUED) DIAGNOSTIC IMAGING REPORT [facility] - [address] [place] [address] PHONE #: [phone] FAX #: [phone] Name: NELLY FLORES Loc: JUDY Radiology No: : 1995 Age: 20 Sex: F Status: REG [facility] Unit No: [id number] Phys: Alva Matt Acct: [id number] Reason For Exam: des for Exam: SUPERVISION OF 2 Exam Date: 10/24/2015 ----- EXAMS: CPT CODE: [id number] PREG >1ST TRIMESTER 99217 <Continued> Bladder: visualized Kidneys: visualized Three vessel [...] Technologist: ; TANYA HODGE Transcribed Date/Time: 10/24/2015 (5053)Fire Manager: CHIP Printed Date/Time: 10/24/2015 (4586) BATCH NO: N/A PAGE 2 Signed Report Radiology Report from [facility] on 03/19/2016 19:32:00 DIAGNOSTIC IMAGING REPORT [facility] - [address] [address] PHONE #: [phone] FAX #: [phone] Name: NELLY FOLRES CARMEN Loc: W.3532 1 Radiology No: : 1995 Age: 21 Sex: F Status: ADM IN Unit No: [id number] Phys: Rula Best MD Acct: [id number] Reason For Exam: PT REPORTS PAIN IN RT. CALF. Exam Date: 03/19/2016 EXAMS: CPT CODE: [id number] DOPPLER LOW EXTR VENOUS 28784 REASON FOR EXAM: PT REPORTS PAIN IN [...] DO Technologist: ALVA PASCAL Transcribed Date/Time: 03/19/2016 (1926)Fire Manager: PDAVIDAC Printed Date/Time: 03/19/2016 (1931) BATCH NO: N/A PAGE 1 Signed Report Radiology Report from [facility] on 11/24/2016 16:08:00 DIAGNOSTIC IMAGING REPORT [facility] - [address] [address] PHONE #: [phone] FAX #: [phone] Name: NELLY FLORES Loc: MELODIE Radiology No: : 1995 Age: 21 Sex: F Status: REG ER Unit No: [id number] Phys: Kamaljit Bejarano MD Acct: [id number] Reason For Exam: abd pain Exam Date: 11/24/2016 EXAMS: CPT CODE: [id number] PREG 1ST TRIMESTER 82272 TIME OF EXAM: 11/24/2016 3:50 PM REASON [...] abnormality is seen at this time. at 1605 Reported and signed by: ADORE SHEA MD CC: Technologist: ILANA CAMACHO Transcribed Date/Time: 11/24/2016 (2915)Fire Manager: YANDY Printed Date/Time: 11/24/2016 (2013) BATCH NO: N/A PAGE 1 Signed Report Radiology Report from [facility] on 12/11/2016 16:26:00 DIAGNOSTIC IMAGING REPORT [facility] [address] [place] [address] PHONE #: [phone] FAX #: [phone] Name: NELLY FLORES Loc: W.ALEXANDOR Radiology No: : 1995 Age: 21 Sex: F Status: REG ER Unit No: [id number] Phys: Renate De La Torre Acct: [id number] Reason For Exam: VB/pelvic pain Exam Date: 12/11/2016 EXAMS: CPT CODE: [id number] PREG 1ST TRIMESTER 09600 HISTORY: Vaginal bleeding and pelvic pain COMPARISON: [...] CC: Technologist: TANYA HODGE Transcribed Date/Time: 12/11/2016 (0326)Fire Manager: TELLO Printed Date/Time: 12/11/2016 (5656) BATCH NO: N/A PAGE 1 Signed Report Radiology Report from [facility] on 01/23/2017 09:59:00 DIAGNOSTIC IMAGING REPORT [facility] - [address] [address] PHONE #: [phone] FAX #: [phone] Name: NELLY FLORES CARMEN Loc: JUDY Radiology No: : 1995 Age: 21 Sex: F Status: REG [facility] Unit No: [id number] Phys: PRINCESS Low Alva Mccall Acct: [id number] Reason For Exam: VIABILITY Exam Date: 01/23/2017 EXAMS: CPT CODE: [id number] PREG >1ST TRIMESTER 82078 REASON FOR EXAM: VIABILITY TIME OF CURRENT [...] 1 Signed Report (CONTINUED) DIAGNOSTIC IMAGING REPORT [facility] - [address] [place] [address] PHONE #: [phone] FAX #: [phone] Name: NELLY FLORES Loc: JUDY Radiology No: : 1995 Age: 21 Sex: F Status: REG I Unit No: [id number] Phys: Alva Matt Acct: [id number] Reason For Exam: des for Exam: VIABILITY Exam Date: 01/23/2017 EXAMS: CPT CODE: [id number] PREG >1ST TRIMESTER 78318 <Continued> Bladder: visualized Three vessel cord: visualized [...] DO Technologist: ISA COLLIER Transcribed Date/Time: 01/23/2017 (0930)Fire Manager: LINDA Printed Date/Time: 01/23/2017 (8647) BATCH NO: N/A PAGE 2 Signed Report Radiology Report from [facility] on 03/06/2017 14:07:00 DIAGNOSTIC IMAGING REPORT [address] [address] PHONE #: [phone] FAX #: [phone] Name: NELLY FLORES Loc: WILMA Radiology No: : 1995 Age: 22 Sex: F Status: REG [facility] Unit No: [id number] Phys: Alva Matt Acct: [id number] Reason For Exam: NORMAL PREG- ANATOMY Exam Date: 03/06/2017 EXAMS: CPT CODE: [id number] SONO FOLLOWUP 08694 REASON FOR EXAM: 22-year-old female presents for [...] 1 Signed Report (CONTINUED) DIAGNOSTIC IMAGING REPORT [address] [address] PHONE #: [phone] FAX #: [phone] Name: NELLY FLORES Loc: WILMA Radiology No: : 1995 Age: 22 Sex: F Status: REG CLI Unit No: [id number] Phys: Alva Matt Acct: [id number] Reason For Exam: des for Exam: NORMAL PREG- SU Exam Date: 03/06/2017 EXAMS: CPT CODE: [id number] SONO FOLLOWUP 78365 <Continued> an ALEXANDRO of 07/04/2017. These are within range of clinical dates. 2. Visualization of anatomic structures as described. There is poor visualization of the lower spine, nasal bone and bilateral hands. No definite abnormality was appreciated. 3. Adequate interval growth since 01/23/2017. I have personally reviewed these images and corrected the resident physician's interpretation if necessary. at 1401 RESIDENT: GEORGETTE ROB MD Reported and signed by: RONEY SILVA MD CC: Alva Mccall DO Technologist: SAMRA GRULLON Transcribed Date/Time: 03/06/2017 (1005)Fire Manager: TELLO Printed Date/Time: 03/06/2017 (6938) BATCH NO: N/A PAGE 2 Signed Report Radiology Report from [facility] on 06/19/2017 11:48:00 PATIENT NAME: NELLY FLORES UNIT NO: [id number] EXAMS: CPT CODE: [id number] RENAL 65567 TIME OF EXAM: 06/19/2017 11:05 AM REASON [...] these images and approved or corrected the residen t physician's interpretation. at 1142 RESIDENT: LOVE MOLINA DO Reported and signed by: PONCHO AGUERO MD [facility] NAME: NELLY FLORES [address] HP: [phone] AGE: 22 S:[place] [address] : 1995 LOC: W.2WOBED PHYS: Missy Atkinson MD R1 PHONE #: [phone] EXAM DATE: 06/19/2017 STATUS: REG ER FAX #: [phone] A#: [id number] U#: [id number] PAGE 1 Signed Report (CONTINUED) PATIENT NAME: NELLY FLORES CARMEN UNIT NO: [id number] EXAMS: CPT CODE: [id number] RENAL 12142 <Continued> CC: Alva Mccall DO TECHNOLOGIST: ILANA CAMACHO TRANSCRIBED DATE/Time: 06/19/2017 1142 BY: BEE EXAM COMPLETE DATE/TIME: [id number] 1105 D/TM:06/19/2017 (1148) [facility] NAME: NELLY FLORES [address] HP: [phone] AGE: 22 S:[place] [address] : 1995 LOC: W.2WOBED PHYS: Missy Atkinson MD R1 PHONE #: [phone] EXAM DATE: 06/19/2017 STATUS: REG ER FAX #: [phone] A#: [id number] U#: [id number] PAGE 2 Signed Report *Final Page* Radiology Report from [facility] on 02/01/2018 08:13:00 PATIENT NAME: NELLY FLORES CARMEN UNIT NO: [id number] EXAMS: CPT CODE: [id number] CT ABD/PELVIS WITH CONTRAST 64382 REASON FOR EXAM: RLQ pain TIME OF [...] Reported and signed by: RIO JACQUES MD GIAN NAME: NELLY FLORES [address] [place] [address] HP: [phone] AGE: 22 S:[place] [id number] : 1995 LOC: W.ALEXANDRO PHYS: Keyon Martell MD PHONE #: [phone] EXAM DATE: 01/31/2018 STATUS: [facility] ER FAX #: [phone] A#: [id number] U#: [id number] PAGE 1 Signed Report (CONTINUED) PATIENT NAME: NELLY FLORES UNIT NO: [id number] EXAMS: CPT CODE: [id number] CT ABD/PELVIS WITH CONTRAST 12046 <Continued> CC: Josue Waldron MD TECHNOLOGIST: KRISTIAN MORALES DEAVERS TRANSCRIBED DATE/Time: 02/01/2018 0807 BY: LANDON EXAM COMPLETE DATE/TIME: [id number] 2316 D/TM:02/01/2018 (0813) [facility] NAME: NELLY FLORES [address] [place] [address] HP: [phone] AGE: 22 S:F [place], [place] [address] : 1995 LOC: W.ALEXANDRO PHYS: Keyon Martell MD PHONE #: [phone] EXAM DATE: 01/31/2018 STATUS: [facility] ER FAX #: [phone] A#: [id number] U#: [id number] PAGE 2 Signed Report *Final Page* Encounters ACCT No. Visit Date/Time Discharge Status Pt. Type Provider Facility Loc./Unit Complaint [id number] 05/01/2015 19:04:00 05/01/2015 20:45:00 DIS Emergency EDIN PADRON, [facility] ER [id number] 01/31/2018 21:30:00 02/01/2018 00:04:00 DIS Emergency Saad PADRON, Keyon Rodas [facility] W.ALEXANDRO [id number] 06/19/2017 08:00:00 06/19/2017 12:20:00 DIS Emergency Bruce Munguia [facility] W.2WOBED [id number] 03/15/2017 21:58:00 03/16/2017 01:12:00 [facility] W.2WOBED [id number] 03/06/2017 12:07:00 03/06/2017 12:07:00 DIS Outpatient Bruce Munguia [facility] W.GRANT [id number] 02/09/2017 00:01:00 02/09/2017 02:24:00 DIS Emergency Anne PADRON, [facility] W.ALEXANDRO [id number] 01/23/2017 08:18:00 01/23/2017 08:18:00 DIS Outpatient Bruce Munguia [facility] W.SUZETTE [id number] 12/11/2016 14:38:00 12/11/2016 16:48:00 DIS Emergency Jayant Ferrera DO [facility] W.ALEXANDRO [id number] 12/02/2016 22:38:00 12/02/2016 23:24:00 DIS Emergency Nancy PADRON, Kamaljit Rodas [facility] W.ALEXANDRO [id number] 11/24/2016 14:19:00 11/24/2016 16:43:00 DIS Emergency Nancy PADRON, Kamaljit Rodas [facility] WMorMCKENNA [id number] 03/17/2016 04:59:00 03/20/2016 16:30:00 [facility] [id number] 02/12/2016 17:43:00 02/13/2016 06:11:00 DIS Out[facility] [id number] 12/22/2015 18:12:00 12/22/2015 23:12:00 DIS Emergency [facility] W[facility] [id number] 10/24/2015 10:30:00 10/24/2015 23:59:59 CLS Preadmit [facility] WMorSUZ[facility] [id number] 10/23/2015 17:56:00 Document Registration [id number] 09/29/2018 23:24:00 09/30/2018 01:30:00 DIS Emergency RAFA PADRON, MELODIE [facility] ER FS UPPER ABD PAIN;LOOSE STOOL;VOMITING [id number] 08/03/2017 14:50:00 08/03/2017 23:59:59 CLS Outpatient BRUCE-ALVA MUNGUIA [facility] EQUIPMENT ANALYST [address] [place] [address] LOCATION [id number] 07/06/2017 14:30:00 07/06/2017 23:59:59 CLS Outpatient ANISAK-ALVA MUNGUIA [facility] EQUIPMENT ANALYST [address] LOCATION [id number] 06/26/2017 08:49:00 06/26/2017 23:59:59 CLS Outpatient BRUCE-ALVA MUNGUIA [facility] EQUIPMENT ANALYST [address] [place] [address] LOCATION [id number] 06/17/2017 08:03:00 06/17/2017 23:59:59 CLS Outpatient BRUCE-ALVA MUNGUIA [facility] EQUIPMENT ANALYST [facility] LOCATION [id number] 05/25/2017 15:34:00 05/25/2017 23:59:59 [facility] LOCATION [id number] 04/06/2017 14:19:00 04/06/2017 23:59:59 CLS [facility]ST [facility] LOCATION [id number] 02/19/2017 12:48:00 02/19/2017 23:59:59 CLS [facility] EQUIP[facility] A[facility]LYST [facility] LOCATION [id number] 01/22/2017 14:36:00 01/22/2017 23:59:59 CLS Outpatient ANISAK-NILDA [facility] EQUIPMENT ANALYST [facility] [address] LOCATION [id number] 04/04/2016 10:22:00 04/04/2016 23:59:59 CLS Outpatient ANISAK-NILDA [facility] EQUIPMENT ANALYST [facility] LOCATION [id number] 03/24/2016 12:24:00 03/24/2016 23:59:59 CLS Outpatient ANISAKEVAN [facility] EQUIPMENT ANALYST [facility] LOCATION [id number] 03/14/2016 09:13:00 03/14/2016 23:59:59 CLS Outpatient EMILY WALTON [facility] EQUIPMENT ANALYST [facility] [address] LOCATION [id number] 02/24/2017 12:04:00 Document Registration [id number] 01/27/2017 13:21:00 Document Registration [id number] 04/04/2016 10:22:00 Document Registration [id number] 03/25/2016 16:10:00 Document Registration [id number] 03/14/2016 10:39:00 Document Registration [id number] 08/02/2015 08:22:00 08/02/2015 23:59:59 CLS Outpatient Anisak[facility] [id number] 10/27/2018 13:45:00 10/27/2018 23:59:59 CLS Outpatient [facility] [id number] 10/27/2018 13:45:00 Document Registration [id number] 10/14/2018 13:15:00 Document Registration
[2018-12-08] MEDS ORDERED: ACETAMINOPHEN 500 MG TAB (TYLENOL) PO ONE (19:30)
--- NOTE | 2018-12-08 19:33 | ED GU-Female ---
General Chief Complaint: - Urinary Stated Complaint: LOW RIGHT BACK PAIN Source: patient Exam Limitations: no limitations History of Present Illness Date Seen by Provider: Dec 08, 2018 Time Seen by Provider: 07:22 Initial Comments The patient is an obese 23-year-old female who presents for evaluation of dysuria, urinary frequency, difficulty urinating, and right flank pain over the last 2 days. She reports a history of frequent kidney infections and states that this feels the same. She is approximately 3 months at this time. She denies fevers or chills, nausea or vomiting, diarrhea, chest pain or shortness of breath, pelvic pain/bleeding/discharge, or abdominal pain. She is alert and oriented 4, calm, appears to be in no distress. Timing/Duration: yesterday Severity/Quality: moderate Location: right flank Radiation: none Activities at Onset: none Modifying Factors: Improves With Movement (makes it worse) Associated Symptoms: urinary frequency Allergies and Home Medications Allergies Coded Allergies: No Known Drug Allergies (Unverified , 09/29/18) Home Medications Dicyclomine HCl 20 Mg Tablet, 20 MG PO TID PRN for ABDOMINAL PAIN Prescribed by: MELODIE CRAIG on 09/30/18 0111 Patient Home Medication List Home Medication List Reviewed: Yes Review of Systems Review of Systems Constitutional: no symptoms reported EENTM: no symptoms reported Respiratory: no symptoms reported Cardiovascular: no symptoms reported Gastrointestinal: no symptoms reported Genitourinary: no symptoms reported Musculoskeletal: no symptoms reported Skin: no symptoms reported Psychiatric/Neurological: No Symptoms Reported Endocrine: No Symptoms Reported Hematologic/Lymphatic: No Symptoms Reported All Other Systemes Reviewed Negative Unless Noted: Yes Past Zrzpiws-Lxretl-Eylkhr Hx Patient Social History 2nd Hand Smoke Exposure: Yes Recent Foreign Travel: No Contact w/Someone Who Travel: No Recent Hopitalizations: No Seasonal Allergies Seasonal Allergies: No Past Medical History Surgeries: Yes Gallbladder Respiratory: No Cardiac: Yes (SVT) Genitourinary: No Gastrointestinal: No Musculoskeletal: No Endocrine: No HEENT: No Cancer: No Psychosocial: Yes Anxiety, Depression Integumentary: No Blood Disorders: No Physical Exam Vital Signs Vital Signs - First Documented 12/08/18 19:18 Temp 97.6 Pulse 110 Resp 20 B/P (MAP) 141/87 (105) Pulse Ox 95 O2 Delivery Room Air Capillary Refill : Height, Weight, BMI Height: 5'7.00" Weight: 328lbs. oz. 148.104162gj; BMI Method:Stated General Appearance: WD/WN, no apparent distress, obese HEENT: PERRL/EOMI, normal ENT inspection Neck: full range of motion, normal inspection Cardiovascular: regular rate, rhythm, no edema, no JVD Respiratory: chest non-tender, normal breath sounds, no respiratory distress, no accessory muscle use Gastrointestinal: normal bowel sounds, non tender, soft, no organomegaly, no pulsatile mass Back: no vertebral tenderness, CVA tenderness (R) Extremities: normal range of motion, non-tender, no pedal edema, no calf tenderness, normal capillary refill Neurologic/Psychiatric: heating and ventilating drafter II-XII nml as tested, alert, normal mood/affect, oriented x 3 Skin: normal color, warm/dry Lymphatic: no adenopathy Progress/Results/Core Measures Suspected Sepsis SIRS Temperature: Pulse: Respiratory Rate: Laboratory Tests 12/08/18 20:15: White Blood Count 10.7 Blood Pressure / Mean: Laboratory Tests 12/08/18 20:15: Creatinine 0.54L, Platelet Count 274, Total Bilirubin 0.2 Results/Orders Lab Results Laboratory Tests Test 12/08/18 19:21 12/08/18 20:15 Range/Units Urine Color YELLOW Urine Clarity CLEAR Urine pH 5.5 5-9 Urine Specific [place] >1.030 1.016-1.022 Urine Protein NEGATIVE NEGATIVE Urine Glucose (UA) NEGATIVE NEGATIVE Urine Ketones NEGATIVE NEGATIVE Urine Nitrite NEGATIVE NEGATIVE Urine Bilirubin NEGATIVE NEGATIVE Urine Urobilinogen 0.2 NORMAL MG/DL Urine Leukocyte Esterase NEGATIVE NEGATIVE Urine RBC (Auto) 1+ H NEGATIVE Urine RBC 2-5 H /HPF Urine WBC NONE /HPF Urine Squamous Epithelial Cells 2-5 /HPF Urine Crystals NONE /LPF Urine Bacteria 1+ /HPF Urine Casts NONE /LPF Urine Mucus SMALL H /LPF Urine Culture Indicated NO White Blood Count 10.7 4.3-11.0 10^3/uL Red Blood Count 4.77 4.35-5.85 10^6/uL Hemoglobin 13.6 11.5-16.0 G/DL Hematocrit 40 35-52 % Mean Corpuscular Volume 85 80-99 FL Mean Corpuscular Hemoglobin 29 25-34 PG Mean Corpuscular Hemoglobin Concent 34 32-36 G/DL Red Cell Distribution Width 14.3 10.0-14.5 % Platelet Count 274 130-400 10^3/uL Mean Platelet Volume 10.6 H 7.4-10.4 FL Neutrophils (%) (Auto) 69 42-75 % Lymphocytes (%) (Auto) 24 12-44 % Monocytes (%) (Auto) 5 0-12 % Eosinophils (%) (Auto) 1 0-10 % Basophils (%) (Auto) 0 0-10 % Neutrophils # (Auto) 7.4 1.8-7.8 X 10^3 Lymphocytes # (Auto) 2.6 1.0-4.0 X 10^3 Monocytes # (Auto) 0.6 0.0-1.0 X 10^3 Eosinophils # (Auto) 0.1 0.0-0.3 10^3/uL Basophils # (Auto) 0.0 0.0-0.1 10^3/uL Neutrophils % (Manual) 61 % Lymphocytes % (Manual) 32 % Monocytes % (Manual) 5 % Eosinophils % (Manual) 1 % Basophils % (Manual) 1 % Band Neutrophils 0 % Blood Morphology Comment NORMAL Sodium Level 136 135-145 MMOL/L Potassium Level 4.0 3.6-5.0 MMOL/L Chloride Level 100 98-107 MMOL/L Carbon Dioxide Level 19 L 21-32 MMOL/L Anion Gap 17 H 5-14 MMOL/L Blood Urea Nitrogen 4 L 7-18 MG/DL Creatinine 0.54 L 0.60-1.30 MG/DL Estimat Glomerular Filtration Rate > 60 BUN/Creatinine Ratio 7 Glucose Level 98 70-105 MG/DL Calcium Level 9.0 8.5-10.1 MG/DL Corrected Calcium 9.1 8.5-10.1 MG/DL Total Bilirubin 0.2 0.1-1.0 MG/DL Aspartate Amino Transf (AST/SGOT) 11 5-34 U/L Alanine Aminotransferase (ALT/SGPT) 10 0-55 U/L Alkaline Phosphatase 74 40-136 U/L Total Protein 7.1 6.4-8.2 GM/DL Albumin 3.9 3.2-4.5 GM/DL Lipase 15 8-78 U/L My Orders Orders - MARIS MOISE DO Ua Culture If Indicated (12/08/18 19:20) Acetaminophen Tablet (Tylenol Tablet) (12/08/18 19:30) Cbc And Manual Diff (12/08/18 20:03) Comprehensive Metabolic Panel (12/08/18 20:03) Lipase (12/08/18 20:03) Iv/Invasive Line Insertion .IV start (12/08/18 20:03) Morphine Injection (Morphine Injection (12/08/18 20:03) Ns Iv 1000 Ml (Sodium Chloride 0.9%) (12/08/18 20:15) Metoclopramide Injection (Reglan Injecti (12/08/18 20:15) Ns Iv 1000 Ml (Sodium Chloride 0.9%) (12/08/18 20:30) Diphenhydramine Injection (Benadryl Inje (12/08/18 20:30) Diphenhydramine Injection (Benadryl Inje (12/08/18 20:25) Ed Iv/Invasive Line Start (12/08/18 20:39) Hydrocodone/Apap 5/325 Tablet (Lortab 5 (12/08/18 21:30) Rx-Hydrocodone/Apap 5-325 Mg (Rx-Vicodin (12/08/18 21:30) Medications Given in ED Current Medications Medications Dose Ordered Sig/Scot Route Start Time Stop Time Status Last Admin Dose Admin Acetaminophen 1,000 mg ONCE ONCE PO 12/08/18 19:30 12/08/18 19:31 DC 12/08/18 19:38 1,000 MG Diphenhydramine HCl 50 mg ONCE ONCE IVP 12/08/18 20:30 12/08/18 20:31 DC 12/08/18 20:34 50 MG Metoclopramide HCl 10 mg ONCE ONCE IVP 12/08/18 20:15 12/08/18 20:16 DC 12/08/18 20:21 10 MG Vital Signs/I&O 12/08/18 19:18 Temp 97.6 Pulse 110 Resp 20 B/P (MAP) 141/87 (105) Pulse Ox 95 O2 Delivery Room Air Capillary Refill : Progress Note : Progress Note @1954 - patient informed of lab results which show evidence of hematuria but no infection to suggest pyelonephritis. The patient may have a kidney stone or renal cysts, less likely an ovarian cyst. Unfortunately because of the a CT is not indicated and ultrasound is not available at this facility or at [facility]. An outpatient ultrasound can be ordered for the patient to be performed [facility] to further evaluate her symptoms as early as tomorrow morning. The pt's pain is worsening and she appears very uncomfortable. IV, labs, and medications ordered at this time. Pt is agreeable to admission at [facility] for pain control, IVF's, and to have U/S performed in the morning while inpatient. @2009 - Case d/w Dr. Naidu who feels the pt does not need to be admitted, that the ultrasound will not be able to take place until 0730 tomorrow at the earliest either way, and that if we can get her pain under control she can be sent home with oral pain medications. The pt is agreeable to this plan. @2024 - Shortly after receiving IV morphine and Reglan the pt has skin redness and hives to the right arm. Benadryl ordered. @2124 - patient's mild allergic reaction is resolved. She states she is feeling much better with only mild discomfort and is asking to go home. She'll be given a dose of [place] now and then a prescription to go home with. The plan is to have the ultrasound obtained in the morning around 7:30 AM. She is to return to the emergency Department immediately for new or worsening symptoms. Workup today fails to reveal any emergent pathology. The patient is stable for discharge home. Departure Impression Primary Impression: Right flank pain Additional Impressions: Hematuria Disposition: HOME, SELF-CARE Condition: Stable Departure-Patient Inst. Referrals: LIAM CRAWFORD DO (PCP) Primary Care Physician Patient Instructions: Blood in the Urine (Hematuria) in Adults, Flank Pain (DC) Add. Discharge Instructions: Take medications as prescribed. Follow-up with your OB or primary care physician in the next 1-2 days. As discussed should have the ultrasound performed of her kidneys tomorrow to determine if you do have a kidney stone or other abnormality causing her pain. Return to the emergency Department immediately for new or worsening symptoms. MARIS MOISE DO Dec 08, 2018 19:33
[2018-12-08 19:44] LABS: BACTERIA,URINE 1+ /HPF; BILIRUBIN,URINE NEGATIVE (NEGATIVE); CLARITY,URINE CLEAR; COLOR,URINE YELLOW; GLUCOSE, URINE (UA) NEGATIVE (NEGATIVE); KETONES,URINE NEGATIVE (NEGATIVE); LEUKOCYTE ESTERASE ,URINE NEGATIVE (NEGATIVE); NITRITE,URINE NEGATIVE (NEGATIVE); PH,URINE 5.5 (5-9); PROTEIN,URINE NEGATIVE (NEGATIVE); UROBILINOGEN,URINE 0.2 MG/DL (NORMAL)
[2018-12-08] MEDS ORDERED: METOCLOPRAMIDE 10 MG (REGLAN) TAB PO ONE (19:45)
[2018-12-08] MEDS ORDERED: morphine INJ 10 MG/ML 1ML (SYR OR VIAL) IVP STA (20:03)
[2018-12-08] MEDS ORDERED: METOCLOPRAMIDE INJ 10 MG/2 ML (REGLAN) IVP ONE (20:15)
[2018-12-08] MEDS ORDERED: NS IV 1000 ML 1,000 ML IV SCH ×2 (20:15→20:30)
[2018-12-08] MEDS ORDERED: diphenhydrAMINE 50 MG/ML INJ (BENADRYL) ONE (20:25)
[2018-12-08 20:29] LABS: BASOPHILS % (AUTO) 0 % (0-10); EOSINOPHILS # (AUTO) 0.1 10^3/uL (0.0-0.3); EOSINOPHILS % (AUTO) 1 % (0-10); HEMATOCRIT 40 % (35-52); HEMOGLOBIN 13.6 G/DL (11.5-16.0); LYMPHOCYTES # (AUTO) 2.6 X 10^3 (1.0-4.0); LYMPHOCYTES % (AUTO) 24 % (12-44); MEAN CORPUSCULAR HEMOGLOBIN 29 PG (25-34); MEAN CORPUSCULAR HGB CONC 34 G/DL (32-36); MEAN CORPUSCULAR VOLUME 85 FL (80-99); MEAN PLATELET VOLUME 10.6 FL (7.4-10.4); MONOCYTES # (AUTO) 0.6 X 10^3 (0.0-1.0); MONOCYTES % (AUTO) 5 % (0-12); NEUTROPHILS # (AUTO) 7.4 X 10^3 (1.8-7.8); NEUTROPHILS % (AUTO) 69 % (42-75); PLATELET COUNT 274 10^3/uL (130-400); RED CELL DISTRIBUTION WIDTH 14.3 % (10.0-14.5); WHITE BLOOD COUNT 10.7 10^3/uL (4.3-11.0)
--- NOTE | 2018-12-08 20:29 | NUR ---
Patient came out of the bathroom and asked if the medication was "supposed to do this to my arm". Patient held out her right arm and it was red with hives. Patient states that it does itch. Patient was given Morphine and Reglan just prior to going to the bathroom. Dr. Jacobson is notified.
[2018-12-08] MEDS ORDERED: diphenhydrAMINE 50 MG/ML INJ (BENADRYL) IVP ONE (20:30)
[2018-12-08 20:48] LABS: ALANINE AMINOTRANSFERASE 10 U/L (0-55); ALBUMIN 3.9 GM/DL (3.2-4.5); ALKALINE PHOSPHATASE 74 U/L (40-136); BILIRUBIN,TOTAL 0.2 MG/DL (0.1-1.0); BUN/CREATININE RATIO 7; CARBON DIOXIDE 19 MMOL/L (21-32); CHLORIDE 100 MMOL/L (98-107); CREATININE SERUM 0.54 MG/DL (0.60-1.30); GFR ESTIMATED > 60; GLUCOSE 98 MG/DL (70-105); LIPASE 15 U/L (8-78); SODIUM 136 MMOL/L (135-145); TOTAL PROTEIN 7.1 GM/DL (6.4-8.2)
[2018-12-08 20:53] LABS: BAND NEUTROPHILS 0 %; BASOPHILS % (MANUAL) 1 %; EOSINOPHILS % (MANUAL) 1 %; LYMPHOCYTES % (MANUAL) 32 %; MONOCYTES % (MANUAL) 5 %; NEUTROPHILS % (MANUAL) 61 %; RBC MORPH NORMAL
--- NOTE | 2018-12-08 21:06 | NUR ---
Patient insists on sitting in the bathroom for long periods of time. Patient states that it makes her pain better.
[2018-12-08] MEDS ORDERED: HYDROcodone/APAP 5 MG/325 MG (LORTAB) TAB PO ONE (21:30)
[2018-12-08] MEDS ORDERED: RX-HYDROCODONE/APAP 5/325 MG #4 TAB PK PO PRN (21:30)
[2018-12-08 21:38] VITALS: BP 141/98
== END 2018-12-08 21:38 | disposition home or self-care (01) ==
LOC: EDUNIT# 19:14 → ER FS 19:16
DX: O26.891 Other specified pregnancy related conditions, first trimester (principal); R10.2 Pelvic and perineal pain; R31.9 Hematuria, unspecified; O99.341 Other mental disorders complicating pregnancy, first trimester; F41.9 Anxiety disorder, unspecified; F32.9 Major depressive disorder, single episode, unspecified; Z3A.12 12 weeks gestation of pregnancy
CPT/HCPCS: 36415; 80053; 81000; 83690; 85007; 85027

== ENCOUNTER 2019-01-03 12:30 | Emergency (ER) | payer MEDICAID ==
[~2019-01-03] VITALS: Ht 170.2 cm; Wt 140.6 kg
[2019-01-03] MEDS ORDERED: PROMETHAZINE 25 MG (PHENERGAN) TAB PO ONE (13:00)
--- NOTE | 2019-01-03 13:29 | ED EENT ---
History of Present Illness General Chief Complaint: Nasal Problems Stated Complaint: VOMITING,CONGESTION - 17 WKS PREG Source: patient, spouse Exam Limitations: no limitations History of Present Illness Date Seen by Provider: Jan 03, 2019 Time Seen by Provider: 13:15 Initial Comments Patient is a all by at 16 weeks 3 days by LMP patient of Dr. Giraldo who presents with 5 days of runny nose congestion and facial pain and cough especially at nighttime. Afebrile at this time but she said she's had subjective fevers. She's had nausea and vomiting and taken the Zofran provided but it did not help her. No other significant medical history. She does not see a primary care doctor. She had preeclampsia with her first but no problems with any of her subsequent . She is using Tylenol for the body aches and chills successfully. Her recently got over a sinus infection. Allergies and Home Medications Allergies Coded Allergies: No Known Drug Allergies (Unverified , 09/29/18) Home Medications Cefdinir 300 Mg Capsule, 300 MG PO BID Prescribed by: IRMA DAO on 01/03/19 1330 Dicyclomine HCl 20 Mg Tablet, 20 MG PO TID PRN for ABDOMINAL PAIN Prescribed by: MELODIE CRAIG on 09/30/18 0111 Patient Home Medication List Home Medication List Reviewed: Yes Review of Systems Review of Systems Constitutional: chills, fever (subjective), malaise Eyes: Denies Blindness, Denies Blurred Vision, Denies Drainage Ears: Denies Dizziness, Denies Pain Nose: congestion; denies epistaxis; purulent discharge Mouth: denies clots, denies pain, denies swelling Throat: denies swelling, denies discharge Respiratory: cough; No phlegm, No short of breath Cardiovascular: No chest pain, No edema Past Llnhbmt-Fguehb-Omessx Hx Patient Social History Alcohol Use: Denies Use Recreational Drug Use: No Smoking Status: Current Everyday Smoker Type Used: Cigarettes 2nd Hand Smoke Exposure: Yes Recent Hopitalizations: No Seasonal Allergies Seasonal Allergies: No Past Medical History Surgeries: Yes Section, Gallbladder Respiratory: No Cardiac: Yes (SVT) Genitourinary: No Gastrointestinal: No Musculoskeletal: No Endocrine: No HEENT: No Cancer: No Psychosocial: Yes Anxiety, Depression Integumentary: No Blood Disorders: No Physical Exam Height, Weight, BMI Height: 5'7.00" Weight: 321lbs. 0oz. 145.058172cd; BMI Method:Stated General Appearance: no apparent distress, obese Eyes: bilateral eye normal inspection, bilateral eye PERRL, bilateral eye EOMI Ears: bilateral ear auricle normal, bilateral ear canal normal, bilateral ear TM dull (mucoid effusion without erythema or injection) Nose: discharge (mucopurulent), sinus tenderness (frontal and maxillofacial tenderness to palpation) Mouth/Throat: normal mouth inspection, pharynx normal Neck: non-tender, full range of motion, supple, normal inspection Cardiovascular: normal peripheral pulses, regular rate, rhythm Respiratory: lungs clear, normal breath sounds, no respiratory distress, no accessory muscle use Neurologic/Psychiatric: alert, normal mood/affect Progress/Results/Core Measures Results/Orders Micro Results Microbiology 01/03/19 Influenza Types A,B Antigen (TALIA) - Final, Complete My Orders Orders - IRMA DAO Influenza A And B Antigens (01/03/19 12:53) Promethazine Tablet (Phenergan Tablet) (01/03/19 13:00) Medications Given in ED Current Medications Medications Dose Ordered Sig/Scot Route Start Time Stop Time Status Last Admin Dose Admin Promethazine HCl 25 mg ONCE ONCE PO 01/03/19 13:00 01/03/19 13:01 DC 01/03/19 13:16 25 MG Progress Progress Note : Time: 13:26 Progress Note If the influenza is negative we'll provide her with some Phenergan and cefdinir for 10 days. Follow-up with primary care. Departure Impression Primary Impression: Maxillary sinusitis, acute Qualified Codes: J01.00 - Acute maxillary sinusitis, unspecified Additional Impression: Nausea and vomiting in Disposition: HOME, SELF-CARE Condition: Stable Departure-Patient Inst. Decision time for Depature: 13:46 Referrals: LIAM CRAWFORD DO (PCP/Family) Primary Care Physician Patient Instructions: Sinusitis, Adult (DC) Add. Discharge Instructions: Take one capsule of the cefdinir twice a day with food for the next 10 days. Continue to use the Zofran as prescribed. Phenergan 1 tablet every 6 hours as needed for nausea. All discharge instructions reviewed with patient and/or family. Voiced understanding. Scripts Promethazine HCl (Promethazine Tablet) 25 Mg Tablet 25 MG PO Q6H PRN for NAUSEA/VOMITING, #14 TAB 0 Refills Prov: IRMA DAO 01/03/19 Cefdinir (Cefdinir) 300 Mg Capsule 300 MG PO BID for 10 Days, #20 CAP 0 Refills Prov: IRMA DAO 01/03/19 Work/School Note: Work Release Form Date Seen in the Emergency Department: Jan 03, 2019 Return to Work: Jan 05, 2019 Restrictions: No Restrictions IRMA DAO Jan 03, 2019 13:29
[2019-01-03] MEDS ORDERED: CEFD300C3 PO (13:30)
[2019-01-03] MEDS ORDERED: PROM25TA14 PO (13:47)
[2019-01-03 13:57] VITALS: BP 113/60
== END 2019-01-03 14:00 | disposition home or self-care (01) ==
LOC: EDUNIT# 12:30 → ER FS 12:32
DX: O99.512 Diseases of the respiratory system complicating pregnancy, second trimester (principal); J01.00 Acute maxillary sinusitis, unspecified; O21.0 Mild hyperemesis gravidarum; O99.331 Smoking (tobacco) complicating pregnancy, first trimester; F17.210 Nicotine dependence, cigarettes, uncomplicated; O99.341 Other mental disorders complicating pregnancy, first trimester; F41.9 Anxiety disorder, unspecified; F32.9 Major depressive disorder, single episode, unspecified; Z3A.17 17 weeks gestation of pregnancy
CPT/HCPCS: 87804

== ENCOUNTER 2019-01-20 14:18 | Emergency (ER) | payer MEDICAID ==
[~2019-01-20] VITALS: Ht 174 cm; Wt 144.0 kg
[~2019-01-20 14:18] MED LIST changes: +CEFD300C3 PO; +PROM25TA14 PO
--- NOTE | 2019-01-20 14:39 | ED General ---
General Stated Complaint: CHRIST LEG SORES; VOMITING; DIARRHEA History of Present Illness Date Seen by Provider: Jan 20, 2019 Time Seen by Provider: 14:34 Initial Comments Patient presenting to the emergency department for evaluation of multiple complaints including cough congestion rash to bilateral upper and lower extremities that is painful. She also says that she has bruising and she wants a mole on her right hand evaluated. She also thinks that she has been having increased vaginal discharge. She is 19 weeks and follows with a local OB. She has not notified her OB about this issue. She denies any abdominal pain or vaginal bleeding. She is in no obvious distress with normal vital signs. Allergies and Home Medications Allergies Coded Allergies: No Known Drug Allergies (Unverified , 09/29/18) Home Medications Cefdinir 300 Mg Capsule, 300 MG PO BID Prescribed by: IRMA DAO on 01/03/19 1330 Dicyclomine HCl 20 Mg Tablet, 20 MG PO TID PRN for ABDOMINAL PAIN Prescribed by: MELODIE CRAIG on 09/30/18 0111 Promethazine HCl 25 Mg Tablet, 25 MG PO Q6H PRN for NAUSEA/VOMITING Prescribed by: IRMA DAO on 01/03/19 1347 Patient Home Medication List Home Medication List Reviewed: Yes Review of Systems Review of Systems Constitutional: no symptoms reported EENTM: nose congestion Respiratory: cough Cardiovascular: no symptoms reported Gastrointestinal: no symptoms reported Genitourinary: discharge Musculoskeletal: no symptoms reported Skin: rash Psychiatric/Neurological: No Symptoms Reported All Other Systems Reviewed Negative Unless Noted: Yes Past Wlsihdy-Ffgiyj-Fncboz Hx Patient Social History Type Used: Cigarettes 2nd Hand Smoke Exposure: Yes Recent Hopitalizations: No Seasonal Allergies Seasonal Allergies: No Past Medical History Surgeries: Yes Section, Gallbladder Respiratory: No Cardiac: Yes (SVT) Genitourinary: No Gastrointestinal: No Musculoskeletal: No Endocrine: No HEENT: No Cancer: No Psychosocial: Yes Anxiety, Depression Integumentary: No Blood Disorders: No Physical Exam Vital Signs Vital Signs - First Documented 01/20/19 14:20 Temp 36.8 Pulse 106 Resp 18 B/P (MAP) 124/68 (86) Pulse Ox 96 O2 Delivery Room Air Capillary Refill : Height, Weight, BMI Height: 5'7.00" Weight: 310lbs. 0oz. 140.126199df; BMI Method:Stated General Appearance: No Apparent Distress, WD/WN HEENT: PERRL/EOMI Neck: Supple Respiratory: Lungs Clear, No Respiratory Distress Cardiovascular: Regular Rate, Rhythm Gastrointestinal: Non Tender, Soft Rectal: Deferred Genital/Rectal: Other (Discussed pelvic exam but she wants to see her OB for this issue.) Back: Normal Inspection Extremity: Normal Capillary Refill Neurologic/Psychiatric: Alert, Oriented x3 Skin: Warm/Dry, Rash (eczema appearing rash on BL arms and legs. Painful to palp. No confluence or erythema, warmth to suggest infection. ), Other (mole appearing lesion on dorsal R hand, relatively small) Progress/Results/Core Measures Suspected Sepsis SIRS Temperature: Pulse: Respiratory Rate: Laboratory Tests 01/20/19 14:47: White Blood Count 5.6 Blood Pressure / Mean: Laboratory Tests 01/20/19 14:47: Creatinine 0.43L, INR Comment 1.0, Platelet Count 222, Total Bilirubin 0.2 Results/Orders Lab Results Laboratory Tests Test 01/20/19 14:47 Range/Units White Blood Count 5.6 4.3-11.0 10^3/uL Red Blood Count 4.45 4.35-5.85 10^6/uL Hemoglobin 12.8 11.5-16.0 G/DL Hematocrit 39 35-52 % Mean Corpuscular Volume 87 80-99 FL Mean Corpuscular Hemoglobin 29 25-34 PG Mean Corpuscular Hemoglobin Concent 33 32-36 G/DL Red Cell Distribution Width 14.5 10.0-14.5 % Platelet Count 222 130-400 10^3/uL Mean Platelet Volume 10.3 7.4-10.4 FL Neutrophils (%) (Auto) 67 42-75 % Lymphocytes (%) (Auto) 25 12-44 % Monocytes (%) (Auto) 6 0-12 % Eosinophils (%) (Auto) 1 0-10 % Basophils (%) (Auto) 0 0-10 % Neutrophils # (Auto) 3.8 1.8-7.8 X 10^3 Lymphocytes # (Auto) 1.4 1.0-4.0 X 10^3 Monocytes # (Auto) 0.3 0.0-1.0 X 10^3 Eosinophils # (Auto) 0.1 0.0-0.3 10^3/uL Basophils # (Auto) 0.0 0.0-0.1 10^3/uL Prothrombin Time 13.3 12.2-14.7 SEC INR Comment 1.0 0.8-1.4 Activated Partial Thromboplast Time 31 24-35 SEC Sodium Level 135 135-145 MMOL/L Potassium Level 3.8 3.6-5.0 MMOL/L Chloride Level 99 98-107 MMOL/L Carbon Dioxide Level 20 L 21-32 MMOL/L Anion Gap 16 H 5-14 MMOL/L Blood Urea Nitrogen 4 L 7-18 MG/DL Creatinine 0.43 L 0.60-1.30 MG/DL Estimat Glomerular Filtration Rate > 60 BUN/Creatinine Ratio 9 Glucose Level 100 70-105 MG/DL Calcium Level 8.9 8.5-10.1 MG/DL Corrected Calcium 9.4 8.5-10.1 MG/DL Total Bilirubin 0.2 0.1-1.0 MG/DL Aspartate Amino Transf (AST/SGOT) 11 5-34 U/L Alanine Aminotransferase (ALT/SGPT) 8 0-55 U/L Alkaline Phosphatase 73 40-136 U/L Total Protein 6.5 6.4-8.2 GM/DL Albumin 3.4 3.2-4.5 GM/DL My Orders Orders - MUNDO WATKINS DO Cbc With Automated Diff (01/20/19 14:33) Comprehensive Metabolic Panel (01/20/19 14:33) Partial Thromboplastin Time (01/20/19 14:33) Protime With Inr (01/20/19 14:33) Vital Signs/I&O 01/20/19 14:20 Temp 36.8 Pulse 106 Resp 18 B/P (MAP) 124/68 (86) Pulse Ox 96 O2 Delivery Room Air Capillary Refill : Progress Note : Progress Note Patient with multiple complaints all of which appear to be benign to me. She has normal vital signs with a normal lung exam so I suspect this is more likely upper respiratory infection versus allergy symptoms, will try albuterol and benadryl. The bruising is not notable to me however she doesn't appear to have an eczema rash I recommended being treated with Aquaphor. The mall I told her she would have to have biopsied by her primary care provider or a house principal. The vaginal discharge is going to be evaluated by her OB doctor. Patient will be discharged in stable condition, told to follow with her appropriate providers and come back to the ED sooner with any new worsening symptoms. Patient aware and agreeable with plan and verbalized understanding of the above instructions. Departure Impression Primary Impression: URI (upper respiratory infection) Additional Impressions: Dermatitis Skin lesion Disposition: 01 HOME, SELF-CARE Condition: Stable Departure-Patient Inst. Referrals: SELF,KELLEN PADRON (PCP/Family) Primary Care Physician Patient Instructions: Eczema (Atopic Dermatitis), Viral Upper Respiratory I nfection, Adult (DC) Scripts Albuterol Sulfate (PROAIR HFA) 1 Puff Puff 2 PUFF IH Q4H, #1 INHALER 1 PUFF = 90 MCG Prov: MUNDO WATKINS DO 01/20/19 MUNDO WATKINS DO Jan 20, 2019 14:39
[2019-01-20 14:59] LABS: HEMOGLOBIN 12.8 G/DL (11.5-16.0); MEAN CORPUSCULAR HEMOGLOBIN 29 PG (25-34); WHITE BLOOD COUNT 5.6 10^3/uL (4.3-11.0)
[2019-01-20 15:00] LABS: BASOPHILS % (AUTO) 0 % (0-10); EOSINOPHILS # (AUTO) 0.1 10^3/uL (0.0-0.3); EOSINOPHILS % (AUTO) 1 % (0-10); HEMATOCRIT 39 % (35-52); LYMPHOCYTES # (AUTO) 1.4 X 10^3 (1.0-4.0); LYMPHOCYTES % (AUTO) 25 % (12-44); MEAN CORPUSCULAR HGB CONC 33 G/DL (32-36); MEAN CORPUSCULAR VOLUME 87 FL (80-99); MEAN PLATELET VOLUME 10.3 FL (7.4-10.4); MONOCYTES # (AUTO) 0.3 X 10^3 (0.0-1.0); MONOCYTES % (AUTO) 6 % (0-12); NEUTROPHILS # (AUTO) 3.8 X 10^3 (1.8-7.8); NEUTROPHILS % (AUTO) 67 % (42-75); PLATELET COUNT 222 10^3/uL (130-400); RED CELL DISTRIBUTION WIDTH 14.5 % (10.0-14.5)
[2019-01-20 15:20] LABS: ALANINE AMINOTRANSFERASE 8 U/L (0-55); ALBUMIN 3.4 GM/DL (3.2-4.5); ALKALINE PHOSPHATASE 73 U/L (40-136); BILIRUBIN,TOTAL 0.2 MG/DL (0.1-1.0); BUN/CREATININE RATIO 9; CALCIUM 8.9 MG/DL (8.5-10.1); CARBON DIOXIDE 20 MMOL/L (21-32); CHLORIDE 99 MMOL/L (98-107); CREATININE SERUM 0.43 MG/DL (0.60-1.30); GFR ESTIMATED > 60; GLUCOSE 100 MG/DL (70-105); POTASSIUM 3.8 MMOL/L (3.6-5.0); SODIUM 135 MMOL/L (135-145); TOTAL PROTEIN 6.5 GM/DL (6.4-8.2)
[2019-01-20 15:34] LABS: PROTHROMBIN TIME PATIENT 13.3 SEC (12.2-14.7)
[2019-01-20] MEDS ORDERED: RT-ALBUINH IH (15:45)
[2019-01-20 15:50] VITALS: BP 124/68
== END 2019-01-20 15:50 | disposition home or self-care (01) ==
LOC: EDUNIT# 14:18 → ER FS 14:19
DX: O99.512 Diseases of the respiratory system complicating pregnancy, second trimester (principal); J06.9 Acute upper respiratory infection, unspecified; O99.712 Diseases of the skin and subcutaneous tissue complicating pregnancy, second trimester; L30.9 Dermatitis, unspecified; L98.9 Disorder of the skin and subcutaneous tissue, unspecified; O99.342 Other mental disorders complicating pregnancy, second trimester; F32.9 Major depressive disorder, single episode, unspecified; F41.9 Anxiety disorder, unspecified; Z3A.19 19 weeks gestation of pregnancy; Z77.22 Contact with and (suspected) exposure to environmental tobacco smoke (acute) (chronic); Z98.890 Other specified postprocedural states
CPT/HCPCS: 36415; 80053; 85025; 85610; 85730

== ENCOUNTER → 2019-06-02 | Outpatient (CLI) | payer MEDICAID ==
[~2019-06-02] MED LIST changes: +RT-ALBUINH IH
== END | disposition home or self-care (01) ==
LOC: PREOP 05:33
PROVIDERS: ATTEND Obstetrics & Gynecology
DX: Z01.818 Encounter for other preprocedural examination (principal)